=== PATIENT | male | born 2000 | race Caucasian/White ===

== ENCOUNTER 2020-06-29 15:43 | Outpatient (REF) | payer OTHER, SELFPAY ==
--- NOTE | ~2020-06-29 | XR_ITS ---
EXAMINATION: XR TEMPOROMANDIBULAR JOINT, BILATERAL CLINICAL INFORMATION: M26.609 - Unspecified temporomandibular joint disorder, unspecified side. COMPARISON: None TECHNIQUE: Bilateral open and closed oblique lateral views of the TMJ are obtained along with an AP view. There are a total of 5 views of the bilateral exam. FINDINGS: The condylar heads and necks appear normal. The mandibular fossas appear normal. There is no joint narrowing or erosive change. No fracture. There appears to be normal translocation with open-mouth position. XR/XR TMJ BI IMPRESSION: 1. Unremarkable bilateral TMJ radiographs. 2. If clinically indicated, further imaging of the temporomandibular joint and meniscus may be obtained with MRI.
== END 2020-06-29 15:44 | disposition home or self-care (01) ==
LOC: HO.HMGCX 15:43
PROVIDERS: PCP Nurse Practitioner Family; Visit Provider Nurse Practitioner Family
DX: M26.609 Unspecified temporomandibular joint disorder, unspecified side (principal)
CPT/HCPCS: 70330

== ENCOUNTER 2020-08-05 09:37 | Outpatient (RCR) | payer OTHER, SELFPAY ==
--- NOTE | 2020-08-09 12:07 | MHC.PT.EP ---
[facility] [place] Office [place] Office [place] Office [address] [phone] F: [phone] F: [phone] F: [phone] F: [phone] Physical Therapy Plan of Care Date of Evaluation: 08/05/20 Date of Surgery: Diagnosis: TMD Assessment: Pt is a 20 y/o male referred to PT for TMD who presents with signs and symptoms consistent with diagnosis resulting in decreased tolerance for talking for duration, chewing and eating preferred foods, modifying his diet to accommodate, and full range opening activities such as yawning secondary to decreased TMJ ROM, decreased cervical posture, increased cervical tissue tension, presence of L side click with opening and crepitis upon closing, and mandibular instability. Pt is deemed an appropriate candidate to receive skilled PT services to address his physical impairments in order to improve his functional ability and return to PLOF with is unrestricted of mandibular/ TMJ activity. NOTE: call placed to Pt's dental office for appropriateness of police guard who responded and will f/u with Pt. Frequency and Duration: The patient will be seen 1 x / wk x 6 wks. Short Term Goals: In 1 week: initiate [place] x 6 series of exercises with evidence of home compliance. In 3 weeks: baseline pain with activity improved to < 3/10; initial 5/10. In 3 weeks: Pt will have f/u with DMD re. police guard if appropriate. Alf Goals: In 6 weeks: I with Home Program. In 6 weeks: Full painless mandibular depression without clicking. In 6 weeks: Pt will report able to consume preferred food nutrition items w/o difficulty; initial: i can't eat much of anything I want, because it often causes pain, tenderness or restricted jaw opening (TMD index). Treatment Plan: Modalities to reduce pain, spasms and effusion. Manual therapy to restore motion and function. Therapeutic exercise to improve strength and flexibility. Neuromuscular re-education for posture and balance. Therapeutic activities to return to functional activities of daily living. Electronically signed by: Hitesh Schmidt PT. Please sign and return to therapist. Thank you for your referral.
== END 2021-01-27 08:55 | disposition home or self-care (01) ==
LOC: HO.PTCHIC 09:37
PROVIDERS: PCP Nurse Practitioner Family; Visit Provider Nurse Practitioner Family
DX: M26.602 Left temporomandibular joint disorder, unspecified (principal)
CPT/HCPCS: 97110; 97161

== ENCOUNTER 2020-08-10 17:05 | Inpatient (IN) | payer OTHER, SELFPAY ==
--- NOTE | ~2020-08-10 | CT_ITS ---
EXAMINATION: CT ABDOMEN AND PELVIS WITH CONTRAST CLINICAL INFORMATION: Diffuse abdominal pain. Nausea and vomiting. Diarrhea. COMPARISON: CT scan abdomen pelvis 03/08/2019 TECHNIQUE: Multidetector volumetric images were obtained from the superior aspect of the liver through the pubic symphysis following administration 85 mL of Omnipaque 350 intravenous contrast. Sagittal and coronal reformatted images were obtained on the technologist's workstation. Oral contrast: No This CT examination was performed using dose optimization techniques as appropriate, variously including the following: *Automated exposure control *Adjustment of mA and/or kV according to patient size (this includes techniques or standardized protocols for targeted exams where dose is matched to indication/reason for exam; i.e. extremities or head) *Use of iterative reconstruction technique DLP: 690 mGy-cm FINDINGS: LUNG BASES: The visualized lung bases are unremarkable. LIVER, GALLBLADDER, AND BILIARY TREE: The liver is normal in size, shape, and attenuation. No focal hepatic lesion or biliary ductal dilatation is present. The gallbladder is unremarkable with no evidence of radiopaque gallstones, gallbladder wall thickening, or obvious pericholecystic inflammatory changes. PANCREAS: Unremarkable. SPLEEN: Unremarkable. ADRENAL GLANDS: Unremarkable. KIDNEYS AND URETERS: The kidneys are normal in size, shape, and attenuation. No hydronephrosis, hydroureter, or calculi seen. No perinephric stranding. BLADDER: Unremarkable. GASTROINTESTINAL TRACT: Small volume of high density are layering dependently in the cecum. There is a long segment of mild diffuse submucosal thickening of the left colon from the proximal descending colon through the sigmoid colon. There is no significant edema in the pericolonic fat however. Findings consistent with a mild colitis. No bowel obstruction. Small volume of scattered stool in the colon. The appendix is not visualized. The small bowel loops are normal. The stomach is normal. ABDOMINAL WALL: No significant hernia is appreciated. LYMPH NODES: Normal. VASCULAR: Unremarkable. PELVIC VISCERA: Unremarkable. OSSEOUS STRUCTURES: Unremarkable. CT/CT abdomen pelvis w con IMPRESSION: There is a long segment of mild diffuse submucosal thickening, edema, of the descending colon and sigmoid consistent with colitis. Findings consistent with patient history of C. difficile.
[2020-08-10 18:34] LABS: MANUAL DIFF FLAG NO
[2020-08-10 18:36] LABS: Basophils Percent Auto 0.4 % (0-2); Eosinophils Percent Auto 0.6 % (0-4); Hematocrit 41.9 % (42-52); Imm Gran Abs Auto 0.01 X10*3/uL (0.00-0.03); Imm Gran Pct Auto 0.2 % (0.0-0.4); Lymphocytes Absolute Auto 1.1 X10*3/uL (1.2-4.9); Lymphocytes Percent Auto 23.8 % (20-40); Mean Corpuscular HGB Conc 35.8 g/dl (31.0-36.0); Mean Corpuscular Hemoglobin 31.6 pg (27.0-33.0); Mean Corpuscular Volume 88.4 fL (80-98); Mean Platelet Volume 9.8 fL (9.4-12.4); Monocytes Absolute Auto 0.7 X10*3/uL (0.1-1.2); Monocytes Percent Auto 15.4 % (2-11); Neutrophils Absolute Auto 2.8 X10*3/uL (2.0-8.3); Neutrophils Percent Auto 59.6 % (45-73); Platelet Count 248 X10*3/uL (160-400); Red Blood Count 4.74 X10*6/uL (4.60-5.80); Red Cell Distribution Width 11.6 % (11.0-16.0); White Blood Count 4.6 X10*3/uL (4.8-10.8)
[2020-08-10 18:43] LABS: INTERNATIONAL NORM RATIO 1.2 (0.9-1.1); Prothrombin Time 14.3 SEC (10.8-13.0)
[2020-08-10 18:50] LABS: COVID-19 Test Negative (Negative); IDNOW Serial# 9DD0AD1C
[2020-08-10 19:01] LABS: Lipase 10 U/L (8-78)
[2020-08-10 19:02] LABS: Alanine Aminotransferase 13 U/L (0-40); Albumin Level 4.4 g/dL (3.5-5.0); Alkaline Phosphatase 93 U/L (39-117); Anion Gap 17 (12-20); Aspartate Amino Transferase 15 U/L (5-37); Bilirubin Direct 0.5 mg/dL (0.0-0.5); Bilirubin Total 1.2 mg/dL (0.0-1.0); Blood Urea Nitrogen 10 mg/dL (9-16); Calcium 9.3 mg/dL (8.4-10.2); Carbon Dioxide 25 mmol/L (22-29); Chloride 99 mmol/L (96-108); Estimated Glomerular Filt Rate > 60; Glucose Random 93 mg/dL (60-115); Potassium 3.8 mmol/L (3.3-5.1); Sodium 137 mmol/L (135-145); Total Protein 7.1 g/dL (6.5-8.0)
[2020-08-10 20:37] VITALS: BP 130/68; PULSE 80; RESP 18; TEMP 37.2; O2SAT 98; BMI 28.0
[2020-08-10 20:54] LABS: Glucose Urine UA NEG (NEG); Leukocyte Esterase Urine NEG (NEG); Nitrite Urine NEG (NEG); PH 5.5 (5.0-8.0); Specific Gravity - Urine >= 1.030 (1.005-1.025); Urine Blood NEG (NEG); Urine Ketones 15 MG/DL (NEG); Urine Protein TRACE MG/DL (NEG-TRACE)
[2020-08-10 20:59] LABS: Appearance Urine CLEAR; Color Urine DARK YELLOW
[2020-08-10 21:48] VITALS: RESP 18
[2020-08-10] MEDS: Morphine Sulfate 4 MG/ML CARTRIDGE IVPUSH (21:48)
[2020-08-10] MEDS: Metoclopramide HCl 10 MG/2 ML VIAL IVPUSH (21:48)
[2020-08-10 22:04] VITALS: BP 119/71; PULSE 87; PULSE 88; RESP 17; RESP 18; TEMP 37.1; O2SAT 94; O2SAT 97
--- NOTE | 2020-08-10 22:04 | ED.ABDPAIN ---
HPI - Abdominal Pain General Chief Complaint: Abdominal Pain <FLIP Jacobson Last Filed: 08/10/20 22:52> Stated Complaint: Abdominal pain <FLIP Jacobson Last Filed: 08/10/20 22:52> Time Seen by Provider: 08/10/20 17:19 <FLIP Jacobson Last Filed: 08/10/20 22:52> Source: patient <FLIP Jacobson Last Filed: 08/10/20 22:52> Mode of arrival: ambulatory <FLIP Jacobson Last Filed: 08/10/20 22:52> Limitations: no limitations <FLIP Jacobson Last Filed: 08/10/20 22:52> History of Present Illness HPI narrative: A 20-year-old male with a past medical history of hepatitis, anxiety and depression presenting to the ED with complaints of nausea/vomiting with bilious/green watery diarrhea with diffuse abdominal pain worse in the right lower quadrant since Saturday worse today. Reports that he has been going to the bathroom to move his bowels multiple times an hour in small amounts. Reports that this started after eating overall steak although he normally eats a raw steak and he was with other people who ate the same raw steak and they do not have the same symptoms. Reports that he works at [employer]. Denies any recent travel or sick contacts or any other bad food exposure that he is aware of. Denies general weakness, Fevers, chest pain, shortness of breath, back pain, dysuria, hematuria or abnormal penile discharge. <FLIP Jacobson Last Filed: 08/10/20 22:52> MD elicited complaint: abdominal pain and other (Nausea/vomiting and green diarrhea) <FLIP Jacobson Last Filed: 08/10/20 22:52> Pertinent past history: none <FLIP Jacobson Last Filed: 08/10/20 22:52> Onset (ago): day(s) (Four days worse today) <FLIP Jacobson Last Filed: 08/10/20 22:52> Pain Consistency: constant <FLIP Jacobson Last Filed: 08/10/20 22:52> Location: diffuse and RLQ <FLIP Jacobson Last Filed: 08/10/20 22:52> Severity: severe <FLIP Jacobson Last Filed: 08/10/20 22:52> Quality: cramping and aching <FLIP Jacobson Last Filed: 08/10/20 22:52> Radiation: none <FLIP Jacobson Last Filed: 08/10/20 22:52> Migration to: no migration <FLIP Jacobson Last Filed: 08/10/20 22:52> Exacerbating factors: nothing <FLIP Jacobson Last Filed: 08/10/20 22:52> Relieving factors: nothing <FLIP Jacobson Last Filed: 08/10/20 22:52> Context: possible food poisoning <FLIP Jacobson Last Filed: 08/10/20 22:52> Associated symptoms: nausea, vomiting and diarrhea <FLIP Jacobson Last Filed: 08/10/20 22:52> Related Data Home Medications: Previous Rx's Medication Instructions Recorded trazodone 100 mg tablet 100 mg PO BEDTIME 30 Days #30 tab 06/23/20 sertraline 100 mg tablet 100 mg PO DAILY #90 tab 06/27/20 levofloxacin 750 mg PO DAILY 7 Days #12 tab 08/13/20 oxycodone 5 mg PO Q6H PRN #10 tab 08/13/20 <FLIP Jacobson Last Filed: 08/10/20 22:52> Allergies/Adverse Reactions: Allergies Allergy/AdvReac Type Severity Reaction Status Date / Time amoxicillin [AMOXICILLIN] Allergy Unknown hives Verified 04/20/20 08:35 <FLIP Jacobson Last Filed: 08/10/20 22:52> Review of Systems Review of Systems Constitutional : No Fever, No Chills, No Night Sweats, No Fatigue, No Malaise Cardiovascular : No Chest Pain, No SOB Respiratory : No Cough, No Sputum, No Wheezing, No Dyspnea Gastrointestinal : + Nausea, + Vomiting, + Diarrhea, + abdominal Pain, No Hematochezia, No Melena Genitourinary : No irregular bleeding, No Dysuria, No Urinary Frequency, No Hematuria,No Urinary Incontinence, No Urgency, No Flank Pain Musculoskeletal : No joint pain, No Myalgias, No Joint Swelling Skin : No Skin Lesions, No rash Neuro : No Weakness, No Numbness, No Paresthesias, No Loss of Consciousness, No Dizziness, No Headache Heme/Lymph: No Lymphadenopathy Endocrine : No Temperature Intolerance <FLIP Jacobson - Last Filed: 08/10/20 22:52> Yes all other systems are reviewed and are negative <FLIP Jacobson - Last Filed: 08/10/20 22:52> Physical Exam Vital Signs: Vital Signs: Last Vital Signs Temp 97.7 F 08/13/20 15:29 Pulse 89 08/13/20 15:29 Resp 14 08/13/20 15:29 BP 118/59 L 08/13/20 15:29 Pulse Ox 96 08/13/20 15:29 Body Mass Index 28.0 vital signs have been reviewed as normal and appeared to be correct. Blood pressure normal. Heart rate normal. Respiration rate normal. Temperature normal. Oxygen saturation normal. <FLIP Jacobson - Last Filed: 08/10/20 22:52> Vital Signs: Last Vital Signs Temp 97.7 F 08/13/20 15:29 Pulse 89 08/13/20 15:29 Resp 14 08/13/20 15:29 BP 118/59 L 08/13/20 15:29 Pulse Ox 96 08/13/20 15:29 Body Mass Index 28.0 <Dav Jackman MD - Last Filed: 08/30/20 06:18> Appearance: Alert. Oriented X3. No acute distress. Head: Normal external exam. Normocephalic. Eyes: PERRLA. EOMI. Conjunctiva and sclera normal. Eyelids normal. ENT: Pharynx normal. Uvula midline. Moist mucous membranes. Neck: Normal inspection. Neck supple. FROM. No adenopathy. No meningeal signs. CVS: Normal heart rate and rhythm. Heart sound normal. No murmurs noted. Pulses normal throughout. Respiratory: No respiratory distress. Painless inspiration. Breath sounds normal. No wheezes/rales/rhonchi noted. Chest nontender. No accessory muscle usage noted or decreased air movement noted. Abdomen: Soft and with TTP diffusely worse in the right lower quadrant with guarding. Nondistended. No rigidity. Bowel sounds normal in all 4 quadrants. No distention noted. No organomegaly noted. No visible injury noted. No rebound tenderness. Negative Rovsing sign. Negative obturator's sign. Negative psoas sign. Negative Neil sign. Back: No CVA tenderness. Full range of motion noted. Skin: Skin warm and dry. Normal skin color. Normal skin turgor. No rashes/lesions/lacerations noted. Extremities: Extremities exhibit normal range of motion. Extremities nontender. Neuro: Oriented X 3. No motor deficit. No sensory deficit. Reflexes normal. <FLIP Jacobson - Last Filed: 08/10/20 22:52> Course Course Course Narrative: A 20-year-old male with a past medical history of hepatitis, anxiety and depression presenting to the ED with complaints of nausea/vomiting with bilious/green watery diarrhea with diffuse abdominal pain worse in the right lower quadrant since Saturday worse today. - labs obtained and patient with white blood cell count of 4000. Bilirubin 1.2 otherwise all other labs are within normal limits. UA within normal limits no evidence of UTI. Negative COVID. CT scan of abdomen and pelvis revealed long segment of mild diffuse submucosal thickening, edema, of the descending colon and sigmoid consistent with colitis. Findings consistent with patient history of C. difficile. - although when I look in the patient's old chart there is no history of C diff he denies a history of C diff therefore not sure what they meant and CT scan may be because I wrote green colored stools. - at this time patient has negative for C diff on stool culture although will treat for colitis and plan to admit for colitis with associated nausea/vomiting and diffuse abdominal pain. Patient understands agrees with this plan. <FLIP Jacobson - Last Filed: 08/10/20 22:52> I have reviewed the chart <Dav Jackman MD - Last Filed: 08/30/20 06:18> MDM - Abdominal Pain Medical Records Attestation: I reviewed the patient's medical records. <FLIP Jacobson - Last Filed: 08/10/20 22:52> Lab Data Attestation: I reviewed the patient's lab results. <FLIP Jacobson - Last Filed: 08/10/20 22:52> Result diagrams: : 08/11/20 07:02 08/11/20 07:02 <FLIP Jacobson - Last Filed: 08/10/20 22:52> Labs: Lab Results 08/10/20 08/10/20 08/10/20 Range/Units 18:28 18:28 18:29 WBC 4.6 L (4.8-10.8) X10*3/uL RBC 4.74 (4.60-5.80) X10*6/uL Hgb 15.0 (14.0-18.0) g/dl Hct 41.9 L (42-52) % MCV 88.4 (80-98) fL MCH 31.6 (27.0-33.0) pg MCHC 35.8 (31.0-36.0) g/dl RDW 11.6 (11.0-16.0) % Plt Count 248 (160-400) X10*3/uL MPV 9.8 (9.4-12.4) fL Immature Gran % (Auto) 0.2 (0.0-0.4) % Neut % (Auto) 59.6 (45-73) % Lymph % (Auto) 23.8 (20-40) % Ford % (Auto) 15.4 H (2-11) % Eos % (Auto) 0.6 (0-4) % Baso % (Auto) 0.4 (0-2) % Lymph # (Auto) 1.1 L (1.2-4.9) X10*3/uL Ford # (Auto) 0.7 (0.1-1.2) X10*3/uL Eos # (Auto) 0.0 (0.0-0.4) X10*3/uL Baso # (Auto) 0.0 (0.0-0.2) X10*3/uL Abs Immat Gran (auto) 0.01 (0.00-0.03) X10*3/uL Absolute Neuts (auto) 2.8 (2.0-8.3) X10*3/uL Absolute Nucleated RBC 0.000 (0.0-0.012) X10*3/uL Nucleated RBC % (auto) 0.0 (0.0-0.2) /100WBC PT 14.3 H (10.8-13.0) SEC INR 1.2 H (0.9-1.1) Sodium (135-145) mmol/L Potassium (3.3-5.1) mmol/L Chloride (96-108) mmol/L Carbon Dioxide (22-29) mmol/L Anion Gap (12-20) BUN (9-16) mg/dL Creatinine (0.5-1.4) mg/dL Estim Creat Clear Calc Estimated GFR Random Glucose (60-115) mg/dL Calcium (8.4-10.2) mg/dL Magnesium (1.6-2.6) mg/dL Total Bilirubin (0.0-1.0) mg/dL Direct Bilirubin (0.0-0.5) mg/dL AST (5-37) U/L ALT (0-40) U/L Alkaline Phosphatase (39-117) U/L Total Protein (6.5-8.0) g/dL Albumin (3.5-5.0) g/dL Lipase 10 (8-78) U/L Urine Color Urine Appearance Urine pH (5.0-8.0) Ur Specific [place] (1.005-1.025) Urine Protein (NEG-TRACE) MG/DL Urine Glucose (UA) (NEG) MG/DL Urine Ketones (NEG) MG/DL Urine Blood (NEG) Urine Nitrite (NEG) Ur Leukocyte Esterase (NEG) Stool Leukocytes, Qual (NEGATIVE) C. difficile Toxin A&B (Negative) C. difficile Antigen (Negative) C. difficile Interpret COVID-19 (VISHNU) (Negative) COVID-19 Clin Com 08/10/20 08/10/20 08/10/20 Range/Units 18:29 18:29 20:44 WBC (4.8-10.8) X10*3/uL RBC (4.60-5.80) X10*6/uL Hgb (14.0-18.0) g/dl Hct (42-52) % MCV (80-98) fL MCH (27.0-33.0) pg MCHC (31.0-36.0) g/dl RDW (11.0-16.0) % Plt Count (160-400) X10*3/uL MPV (9.4-12.4) fL Immature Gran % (Auto) (0.0-0.4) % Neut % (Auto) (45-73) % Lymph % (Auto) (20-40) % Ford % (Auto) (2-11) % Eos % (Auto) (0-4) % Baso % (Auto) (0-2) % Lymph # (Auto) (1.2-4.9) X10*3/uL [place] # (Auto) (0.1-1.2) X10*3/uL Eos # (Auto) (0.0-0.4) X10*3/uL Baso # (Auto) (0.0-0.2) X10*3/uL Abs Immat Gran (auto) (0.00-0.03) X10*3/uL Absolute Neuts (auto) (2.0-8.3) X10*3/uL Absolute Nucleated RBC (0.0-0.012) X10*3/uL Nucleated RBC % (auto) (0.0-0.2) /100WBC PT (10.8-13.0) SEC INR (0.9-1.1) Sodium 137 (135-145) mmol/L Potassium 3.8 (3.3-5.1) mmol/L Chloride 99 (96-108) mmol/L Carbon Dioxide 25 (22-29) mmol/L Anion Gap 17 (12-20) BUN 10 (9-16) mg/dL Creatinine 1.04 (0.5-1.4) mg/dL Estim Creat Clear Calc TNP Estimated GFR > 60 Random Glucose 93 (60-115) mg/dL Calcium 9.3 (8.4-10.2) mg/dL Magnesium 2.0 (1.6-2.6) mg/dL Total Bilirubin 1.2 H (0.0-1.0) mg/dL Direct Bilirubin 0.5 (0.0-0.5) mg/dL AST 15 (5-37) U/L ALT 13 (0-40) U/L Alkaline Phosphatase 93 (39-117) U/L Total Protein 7.1 (6.5-8.0) g/dL Albumin 4.4 (3.5-5.0) g/dL Lipase (8-78) U/L Urine Color DARK YELLOW Urine Appearance CLEAR Urine pH 5.5 (5.0-8.0) Ur Specific [place] >= 1.030 H (1.005-1.025) Urine Protein TRACE (NEG-TRACE) MG/DL Urine Glucose (UA) NEG (NEG) MG/DL Urine Ketones 15 (NEG) MG/DL Urine Blood NEG (NEG) Urine Nitrite NEG (NEG) Ur Leukocyte Esterase NEG (NEG) Stool Leukocytes, Qual (NEGATIVE) C. difficile Toxin A&B (Negative) C. difficile Antigen (Negative) C. difficile Interpret COVID-19 (VISHNU) Negative (Negative) COVID-19 Clin Com See Note 08/10/20 08/10/20 Range/Units 21:42 22:13 WBC (4.8-10.8) X10*3/uL RBC (4.60-5.80) X10*6/uL Hgb (14.0-18.0) g/dl Hct (42-52) % MCV (80-98) fL MCH (27.0-33.0) pg MCHC (31.0-36.0) g/dl RDW (11.0-16.0) % Plt Count (160-400) X10*3/uL MPV (9.4-12.4) fL Immature Gran % (Auto) (0.0-0.4) % Neut % (Auto) (45-73) % Lymph % (Auto) (20-40) % Ford % (Auto) (2-11) % Eos % (Auto) (0-4) % Baso % (Auto) (0-2) % Lymph # (Auto) (1.2-4.9) X10*3/uL [place] # (Auto) (0.1-1.2) X10*3/uL Eos # (Auto) (0.0-0.4) X10*3/uL Baso # (Auto) (0.0-0.2) X10*3/uL Abs Immat Gran (auto) (0.00-0.03) X10*3/uL Absolute Neuts (auto) (2.0-8.3) X10*3/uL Absolute Nucleated RBC (0.0-0.012) X10*3/uL Nucleated RBC % (auto) (0.0-0.2) /100WBC PT (10.8-13.0) SEC INR (0.9-1.1) Sodium (135-145) mmol/L Potassium (3.3-5.1) mmol/L Chloride (96-108) mmol/L Carbon Dioxide (22-29) mmol/L Anion Gap (12-20) BUN (9-16) mg/dL Creatinine (0.5-1.4) mg/dL Estim Creat Clear Calc Estimated GFR Random Glucose (60-115) mg/dL Calcium (8.4-10.2) mg/dL Magnesium (1.6-2.6) mg/dL Total Bilirubin (0.0-1.0) mg/dL Direct Bilirubin (0.0-0.5) mg/dL AST (5-37) U/L ALT (0-40) U/L Alkaline Phosphatase (39-117) U/L Total Protein (6.5-8.0) g/dL Albumin (3.5-5.0) g/dL Lipase (8-78) U/L Urine Color Urine Appearance Urine pH (5.0-8.0) Ur Specific [place] (1.005-1.025) Urine Protein (NEG-TRACE) MG/DL Urine Glucose (UA) (NEG) MG/DL Urine Ketones (NEG) MG/DL Urine Blood (NEG) Urine Nitrite (NEG) Ur Leukocyte Esterase (NEG) Stool Leukocytes, Qual MANY: >10/OIF (NEGATIVE) C. difficile Toxin A&B Negative (Negative) C. difficile Antigen Negative (Negative) C. difficile Interpret SEE NOTE COVID-19 (VISHNU) (Negative) COVID-19 Clin Com <FLIP Jacobson - Last Filed: 08/10/20 22:52> Lab Results 08/10/20 08/10/20 08/10/20 Range/Units 18:28 18:28 18:29 WBC 4.6 L (4.8-10.8) X10*3/uL RBC 4.74 (4.60-5.80) X10*6/uL Hgb 15.0 (14.0-18.0) g/dl Hct 41.9 L (42-52) % MCV 88.4 (80-98) fL MCH 31.6 (27.0-33.0) pg MCHC 35.8 (31.0-36.0) g/dl RDW 11.6 (11.0-16.0) % Plt Count 248 (160-400) X10*3/uL MPV 9.8 (9.4-12.4) fL Immature Gran % (Auto) 0.2 (0.0-0.4) % Neut % (Auto) 59.6 (45-73) % Lymph % (Auto) 23.8 (20-40) % Ford % (Auto) 15.4 H (2-11) % Eos % (Auto) 0.6 (0-4) % Baso % (Auto) 0.4 (0-2) % Lymph # (Auto) 1.1 L (1.2-4.9) X10*3/uL [place] # (Auto) 0.7 (0.1-1.2) X10*3/uL Eos # (Auto) 0.0 (0.0-0.4) X10*3/uL Baso # (Auto) 0.0 (0.0-0.2) X10*3/uL Abs Immat Gran (auto) 0.01 (0.00-0.03) X10*3/uL Absolute Neuts (auto) 2.8 (2.0-8.3) X10*3/uL Absolute Nucleated RBC 0.000 (0.0-0.012) X10*3/uL Nucleated RBC % (auto) 0.0 (0.0-0.2) /100WBC PT 14.3 H (10.8-13.0) SEC INR 1.2 H (0.9-1.1) Sodium (135-145) mmol/L Potassium (3.3-5.1) mmol/L Chloride (96-108) mmol/L Carbon Dioxide (22-29) mmol/L Anion Gap (12-20) BUN (9-16) mg/dL Creatinine (0.5-1.4) mg/dL Estim Creat Clear Calc Estimated GFR Random Glucose (60-115) mg/dL Calcium (8.4-10.2) mg/dL Magnesium (1.6-2.6) mg/dL Total Bilirubin (0.0-1.0) mg/dL Direct Bilirubin (0.0-0.5) mg/dL AST (5-37) U/L ALT (0-40) U/L Alkaline Phosphatase (39-117) U/L Total Protein (6.5-8.0) g/dL Albumin (3.5-5.0) g/dL Lipase 10 (8-78) U/L Urine Color Urine Appearance Urine pH (5.0-8.0) Ur Specific [place] (1.005-1.025) Urine Protein (NEG-TRACE) MG/DL Urine Glucose (UA) (NEG) MG/DL Urine Ketones (NEG) MG/DL Urine Blood (NEG) Urine Nitrite (NEG) Ur Leukocyte Esterase (NEG) Stool Leukocytes, Qual (NEGATIVE) C. difficile Toxin A&B (Negative) C. difficile Antigen (Negative) C. difficile Interpret COVID-19 (VISHNU) (Negative) COVID-19 Clin Com 08/10/20 08/10/20 08/10/20 Range/Units 18:29 18:29 20:44 WBC (4.8-10.8) X10*3/uL RBC (4.60-5.80) X10*6/uL Hgb (14.0-18.0) g/dl Hct (42-52) % MCV (80-98) fL MCH (27.0-33.0) pg MCHC (31.0-36.0) g/dl RDW (11.0-16.0) % Plt Count (160-400) X10*3/uL MPV (9.4-12.4) fL Immature Gran % (Auto) (0.0-0.4) % Neut % (Auto) (45-73) % Lymph % (Auto) (20-40) % [place] % (Auto) (2-11) % Eos % (Auto) (0-4) % Baso % (Auto) (0-2) % Lymph # (Auto) (1.2-4.9) X10*3/uL [place] # (Auto) (0.1-1.2) X10*3/uL Eos # (Auto) (0.0-0.4) X10*3/uL Baso # (Auto) (0.0-0.2) X10*3/uL Abs Immat Gran (auto) (0.00-0.03) X10*3/uL Absolute Neuts (auto) (2.0-8.3) X10*3/uL Absolute Nucleated RBC (0.0-0.012) X10*3/uL Nucleated RBC % (auto) (0.0-0.2) /100WBC PT (10.8-13.0) SEC INR (0.9-1.1) Sodium 137 (135-145) mmol/L Potassium 3.8 (3.3-5.1) mmol/L Chloride 99 (96-108) mmol/L Carbon Dioxide 25 (22-29) mmol/L Anion Gap 17 (12-20) BUN 10 (9-16) mg/dL Creatinine 1.04 (0.5-1.4) mg/dL Estim Creat Clear Calc TNP Estimated GFR > 60 Random Glucose 93 (60-115) mg/dL Calcium 9.3 (8.4-10.2) mg/dL Magnesium 2.0 (1.6-2.6) mg/dL Total Bilirubin 1.2 H (0.0-1.0) mg/dL Direct Bilirubin 0.5 (0.0-0.5) mg/dL AST 15 (5-37) U/L ALT 13 (0-40) U/L Alkaline Phosphatase 93 (39-117) U/L Total Protein 7.1 (6.5-8.0) g/dL Albumin 4.4 (3.5-5.0) g/dL Lipase (8-78) U/L Urine Color DARK YELLOW Urine Appearance CLEAR Urine pH 5.5 (5.0-8.0) Ur Specific [place] >= 1.030 H (1.005-1.025) Urine Protein TRACE (NEG-TRACE) MG/DL Urine Glucose (UA) NEG (NEG) MG/DL Urine Ketones 15 (NEG) MG/DL Urine Blood NEG (NEG) Urine Nitrite NEG (NEG) Ur Leukocyte Esterase NEG (NEG) Stool Leukocytes, Qual (NEGATIVE) C. difficile Toxin A&B (Negative) C. difficile Antigen (Negative) C. difficile Interpret COVID-19 (VISHNU) Negative (Negative) COVID-19 Clin Com See Note 08/10/20 08/10/20 Range/Units 21:42 22:13 WBC (4.8-10.8) X10*3/uL RBC (4.60-5.80) X10*6/uL Hgb (14.0-18.0) g/dl Hct (42-52) % MCV (80-98) fL MCH (27.0-33.0) pg MCHC (31.0-36.0) g/dl RDW (11.0-16.0) % Plt Count (160-400) X10*3/uL MPV (9.4-12.4) fL Immature Gran % (Auto) (0.0-0.4) % Neut % (Auto) (45-73) % Lymph % (Auto) (20-40) % [place] % (Auto) (2-11) % Eos % (Auto) (0-4) % Baso % (Auto) (0-2) % Lymph # (Auto) (1.2-4.9) X10*3/uL [place] # (Auto) (0.1-1.2) X10*3/uL Eos # (Auto) (0.0-0.4) X10*3/uL Baso # (Auto) (0.0-0.2) X10*3/uL Abs Immat Gran (auto) (0.00-0.03) X10*3/uL Absolute Neuts (auto) (2.0-8.3) X10*3/uL Absolute Nucleated RBC (0.0-0.012) X10*3/uL Nucleated RBC % (auto) (0.0-0.2) /100WBC PT (10.8-13.0) SEC INR (0.9-1.1) Sodium (135-145) mmol/L Potassium (3.3-5.1) mmol/L Chloride (96-108) mmol/L Carbon Dioxide (22-29) mmol/L Anion Gap (12-20) BUN (9-16) mg/dL Creatinine (0.5-1.4) mg/dL Estim Creat Clear Calc Estimated GFR Random Glucose (60-115) mg/dL Calcium (8.4-10.2) mg/dL Magnesium (1.6-2.6) mg/dL Total Bilirubin (0.0-1.0) mg/dL Direct Bilirubin (0.0-0.5) mg/dL AST (5-37) U/L ALT (0-40) U/L Alkaline Phosphatase (39-117) U/L Total Protein (6.5-8.0) g/dL Albumin (3.5-5.0) g/dL Lipase (8-78) U/L Urine Color Urine Appearance Urine pH (5.0-8.0) Ur Specific [place] (1.005-1.025) Urine Protein (NEG-TRACE) MG/DL Urine Glucose (UA) (NEG) MG/DL Urine Ketones (NEG) MG/DL Urine Blood (NEG) Urine Nitrite (NEG) Ur Leukocyte Esterase (NEG) Stool Leukocytes, Qual MANY: >10/OIF (NEGATIVE) C. difficile Toxin A&B Negative (Negative) C. difficile Antigen Negative (Negative) C. difficile Interpret SEE NOTE COVID-19 (VISHNU) (Negative) COVID-19 Clin Com <Dav Jackman MD - Last Filed: 08/30/20 06:18> Imaging Data CT scan of abdomen and pelvis with IV contrast: Attestation: I personally reviewed and interpreted this imaging study as follows: <FLIP Jacobson - Last Filed: 08/10/20 22:52> Radiologist's impression: FINDINGS: LUNG BASES: The visualized lung bases are unremarkable. LIVER, GALLBLADDER, AND BILIARY TREE: The liver is normal in size, shape, and attenuation. No focal hepatic lesion or biliary ductal dilatation is present. The gallbladder is unremarkable with no evidence of radiopaque gallstones, gallbladder wall thickening, or obvious pericholecystic inflammatory changes. PANCREAS: Unremarkable. SPLEEN: Unremarkable. ADRENAL GLANDS: Unremarkable. KIDNEYS AND URETERS: The kidneys are normal in size, shape, and attenuation. No hydronephrosis, hydroureter, or calculi seen. No perinephric stranding. BLADDER: Unremarkable. GASTROINTESTINAL TRACT: Small volume of high density are layering dependently in the cecum. There is a long segment of mild diffuse submucosal thickening of the left colon from the proximal descending colon through the sigmoid colon. There is no significant edema in the pericolonic fat however. Findings consistent with a mild colitis. No bowel obstruction. Small volume of scattered stool in the colon. The appendix is not visualized. The small bowel loops are normal. The stomach is normal. ABDOMINAL WALL: No significant hernia is appreciated. LYMPH NODES: Normal. VASCULAR: Unremarkable. PELVIC VISCERA: Unremarkable. OSSEOUS STRUCTURES: Unremarkable. CT/CT abdomen pelvis w con IMPRESSION: There is a long segment of mild diffuse submucosal thickening, edema, of the descending colon and sigmoid consistent with colitis. Findings consistent with patient history of C. difficile. <FLIP Jacobson - Last Filed: 08/10/20 22:52> Critical Care Time Critical Care Time Critical Care Time: Yes <FLIP Jacobson - Last Filed: 08/10/20 22:52> Total Critical Care Time: 60 <FLIP Jacobson - Last Filed: 08/10/20 22:52> Attestation: I personally attest to this time spent taking care of the patient <FLIP Jacobson - Last Filed: 08/10/20 22:52> Discharge Plan Discharge Clinical Impression: Colitis, Diarrhea, Abdominal pain, Nausea & vomiting <FLIP Jacobson - Last Filed: 08/10/20 22:52> Patient Disposition: Admitted As Inpatient <FLIP Jacobson - Last Filed: 08/10/20 22:52> Interventions: Admission Worksheet (ED) Last Done: 08/11/20 08:35 <FLIP Jacobson - Last Filed: 08/10/20 22:52> Discharge Date/Time: 08/11/20 08:35 <FLIP Jacobson - Last Filed: 08/10/20 22:52> [facility] Past Medical History Attestation statement: The following information was validated with the patient. <FLIP Jacobson - Last Filed: 08/10/20 22:52> Medical History: Medical History Anxiety <FLIP Jacobson - Last Filed: 08/10/20 22:52> Surgical History: Surgical History No pertinent past surgical history <FLIP Jacobson - Last Filed: 08/10/20 22:52> Family History Family History: Family History Father No problems noted. Mother No problems noted. Sister No problems noted. <FLIP Jacobson - Last Filed: 08/10/20 22:52> Social History Social History: Social History Household Members: Family Housing: House Smoking Status: Light tobacco smoker service: No Current occupational status: employed <FLIP Jacobson - Last Filed: 08/10/20 22:52>
--- NOTE | 2020-08-10 22:18 | PC.NURSE ---
waiting for both blood cultures to be drawn and then antibx will be started.
[2020-08-10 22:33] LABS: CDIFF Ag Negative (Negative); CDIFF Internal ctrl Dots and bkg OK (V); CDiff Toxin Negative (Negative)
[2020-08-10] MEDS: metroNIDAZOLE/NS 500 MG/100 ML PIGGYBACK 100 MG IV (22:50)
[2020-08-10 23:06] LABS: Leukocytes Stool Qualitative MANY: >10/OIF (NEGATIVE)
--- NOTE | 2020-08-10 23:38 | PM.IMHP ---
History of Present Illness Date of Service: 08/10/20 Chief Complaint: diarrhea and abdominal pain This is a 20-year-old male with no significant past medical history who presents to the hospital with 4 days of abdominal pain as well as bloody diarrhea. Patient reports that he initially started with nausea and vomiting that progressed to diarrhea about 20-30 times daily, the diarrhea has been bloody but small amount, the blood resolved today prior to coming to the hospital, the abdominal pain is diffuse but mostly worst at lower abdomen, 10/10, associated with nausea, the vomiting has resolved at this time, constant, patient has also decreased his oral intake due to the nausea and abdominal pain. No previous similar episode. Denies any family history of IBD. On arrival to the ED hemodynamically stable with no significant abnormal vitals Lab significant for a WBC count of 4.6, PT of 14.3, INR of 1.2, UA negative, C diff negative, come below back to Janie night pending, abdominal pelvic CT showed a long segment of mild diffuse submucosal thickening and edema of the descending colon and sigmoid consistent with colitis. Patient will be admitted for further management Review of Systems Review of Systems: Yes all other systems are reviewed and are negative [facility] Medical History Anxiety Family History Father No problems noted. Mother No problems noted. Sister No problems noted. Surgical History No pertinent past surgical history Social History Smoking Status: Light tobacco smoker Use of substances other than those prescribed or required for medical reasons: No Advance Directives: No Advance Directives Information Provided: Yes Meds Allergies Allergy/AdvReac Type Severity Reaction Status Date / Time amoxicillin [AMOXICILLIN] Allergy Unknown hives Verified 04/20/20 08:35 Physical Exam Vital Signs and Narrative: Vital Signs: Last Vital Signs Temp 98.8 F 08/10/20 22:04 Pulse 87 08/10/20 22:04 Resp 18 08/10/20 22:04 BP 119/71 08/10/20 22:04 Pulse Ox 97 08/10/20 22:04 Body Mass Index 28.0 Const: General: cooperative and no acute distress Orientation/consciousness: patient oriented x3 Eyes: General: appearance normal, both eyes and all related structures Resp: Effort & Inspection: normal respiratory effort Cardio: Rate: regular rate Rhythm: regular rhythm GI: Other: Diffuse tenderness on palpation of abdomen, no guarding, no rebound Palpation (GI): Soft to palpation Skin: General skin exam: no rashes or lesions noted Neuro: General: patient oriented x3 Cognition (Neuro): normal cognition Extrem: General: Yes normal to inspection and Yes no pedal edema Results Labs CBC and Chem 7: 08/10/20 18:29 08/10/20 18:29 Labs: Laboratory Results - last 24 hr 08/10/20 08/10/20 08/10/20 18:28 18:28 18:29 MCV 88.4 MCH 31.6 MCHC 35.8 RDW 11.6 Plt Count 248 MPV 9.8 Immature Gran % (Auto) 0.2 Neut % (Auto) 59.6 Lymph % (Auto) 23.8 [place] % (Auto) 15.4 H Eos % (Auto) 0.6 Baso % (Auto) 0.4 Lymph # (Auto) 1.1 L [place] # (Auto) 0.7 Eos # (Auto) 0.0 Baso # (Auto) 0.0 Abs Immat Gran (auto) 0.01 Absolute Neuts (auto) 2.8 Absolute Nucleated RBC 0.000 Nucleated RBC % (auto) 0.0 PT 14.3 H INR 1.2 H Anion Gap Estim Creat Clear Calc Estimated GFR Random Glucose Calcium Magnesium Total Bilirubin Direct Bilirubin AST ALT Alkaline Phosphatase Total Protein Albumin Lipase 10 Urine Color Urine Appearance Urine pH Ur Specific Hope Urine Protein Urine Glucose (UA) Urine Ketones Urine Blood Urine Nitrite Ur Leukocyte Esterase Stool Leukocytes, Qual C. difficile Toxin A&B C. difficile Antigen C. difficile Interpret COVID-19 ([facility]) COVID-19 Clin Com 08/10/20 08/10/20 08/10/20 18:29 18:29 20:44 MCV MCH MCHC RDW Plt Count MPV Immature Gran % (Auto) Neut % (Auto) Lymph % (Auto) [place] % (Auto) Eos % (Auto) Baso % (Auto) Lymph # (Auto) [place] # (Auto) Eos # (Auto) Baso # (Auto) Abs Immat Gran (auto) Absolute Neuts (auto) Absolute Nucleated RBC Nucleated RBC % (auto) PT INR Anion Gap 17 Estim Creat Clear Calc TNP Estimated GFR > 60 Random Glucose 93 Calcium 9.3 Magnesium 2.0 Total Bilirubin 1.2 H Direct Bilirubin 0.5 AST 15 ALT 13 Alkaline Phosphatase 93 Total Protein 7.1 Albumin 4.4 Lipase Urine Color DARK YELLOW Urine Appearance CLEAR Urine pH 5.5 Ur Specific Hope >= 1.030 H Urine Protein TRACE Urine Glucose (UA) NEG Urine Ketones 15 Urine Blood NEG Urine Nitrite NEG Ur Leukocyte Esterase NEG Stool Leukocytes, Qual C. difficile Toxin A&B C. difficile Antigen C. difficile Interpret COVID-19 ([facility]) Negative COVID-19 Clin Com See Note 08/10/20 08/10/20 21:42 22:13 MCV MCH MCHC RDW Plt Count MPV Immature Gran % (Auto) Neut % (Auto) Lymph % (Auto) [place] % (Auto) Eos % (Auto) Baso % (Auto) Lymph # (Auto) [place] # (Auto) Eos # (Auto) Baso # (Auto) Abs Immat Gran (auto) Absolute Neuts (auto) Absolute Nucleated RBC Nucleated RBC % (auto) PT INR Anion Gap Estim Creat Clear Calc Estimated GFR Random Glucose Calcium Magnesium Total Bilirubin Direct Bilirubin AST ALT Alkaline Phosphatase Total Protein Albumin Lipase Urine Color Urine Appearance Urine pH Ur Specific Hope Urine Protein Urine Glucose (UA) Urine Ketones Urine Blood Urine Nitrite Ur Leukocyte Esterase Stool Leukocytes, Qual MANY: >10/OIF C. difficile Toxin A&B Negative C. difficile Antigen Negative C. difficile Interpret SEE NOTE COVID-19 ([facility]) COVID-19 Clin Com Imaging Radiologist's Impressions: Impressions Abdomen/Pelvis CT 08/10/20 20:06 IMPRESSION: There is a long segment of mild diffuse submucosal thickening, edema, of the descending colon and sigmoid consistent with colitis. Findings consistent with patient history of C. difficile. Assessment and Plan (1) Abdominal pain: Status: Acute (2) Nausea & vomiting: Status: Acute (3) Diarrhea: Status: Acute (4) Colitis: Status: Acute This is a 20-year-old male with no significant past medical history who presents to the hospital with bloody diarrhea # bloody diarrhea - most likely secondary to colitis: Inflammatory versus infectious - reports blood, 20 times daily, and although CT scan suggested possible C diff infection, C diff toxin negative - initially received p.o. Vanco in the ED, will hold - Campylobacter jejuni pending - will also consult GI given the concern for this being possible IBD - supportive measures DVT prophylaxis: early ambulation
[2020-08-11] VITALS (11 sets, daily range): BP systolic 104–140; BP diastolic 51–70; PULSE 74–94; RESP 16–18; TEMP 36–37.1; O2SAT 98–100
[2020-08-11] MEDS: vancomycin HCL 1,250 MG in 0.9 % Sodium Chloride 250 ML 166.67 MG IV (01:04)
--- NOTE | 2020-08-11 01:26 | PC.NURSE ---
PT RESTING IN BED, SKIN PWD RESPIRATIONS EVEN UNLABORED, OFFERS NO COMPLAINTS AT THIS TIME. IV VANCO HUNG AND INFUSING WITHOUT DIFFICULTY. AWAITING BED ASSIGNMENT, AWARE OF PLAN OF CARE.
--- NOTE | 2020-08-11 03:09 | PC.NURSE ---
PT ALERT AMB WITH STEADY GAIT TO BATHROOM. IV ABX COMPLETED. AWAITING BED ASSIGNMENT. NO COMPLAINTS AT THIS TIME.
[2020-08-11] MEDS: Morphine Sulfate 4 MG/ML CARTRIDGE IVPUSH ×2 (03:51→08:05)
--- NOTE | 2020-08-11 03:55 | PC.NURSE ---
PT MEDICATED PER MAR FOR REPORTS OF SEVERE ABD CRAMPING AFTER USING BATHROOM. GUARDING ABD WITH PILLOW, SLIGHTLY DIAPHORETIC.
--- NOTE | 2020-08-11 04:30 | PC.NURSE ---
PT REPORTS POSITIVE RELIEF FROM PAIN MEDS, CONTINUES TO AWAIT BED ASSIGNMENT.
[2020-08-11] MEDS: Enoxaparin Sodium 40 MG/0.4 ML SYRINGE SUBCUT (06:14)
[2020-08-11] MEDS: 0.9 % Sodium Chloride Flush 3 ML SYRINGE IVFLUSH ×4 (06:15→23:27)
--- NOTE | 2020-08-11 07:15 | PC.NURSE ---
Assumed care of pt. He is alert, rr even, speaks in full sentences, skin is pwdi, and he is in nad. He remains npo, and pain management is tolerable at this time at a 5/10. Plan is to admit to medical services with a consult to GI. Awaiting bed placement.
[2020-08-11 07:21] LABS: MANUAL DIFF FLAG NO
[2020-08-11 07:27] LABS: Basophils Percent Auto 0.4 % (0-2); Eosinophils Absolute Auto 0.1 X10*3/uL (0.0-0.4); Eosinophils Percent Auto 1.2 % (0-4); Hematocrit 39.6 % (42-52); Hemoglobin 14.3 g/dl (14.0-18.0); Imm Gran Abs Auto 0.01 X10*3/uL (0.00-0.03); Imm Gran Pct Auto 0.2 % (0.0-0.4); Lymphocytes Absolute Auto 1.3 X10*3/uL (1.2-4.9); Mean Corpuscular HGB Conc 36.1 g/dl (31.0-36.0); Mean Corpuscular Hemoglobin 31.6 pg (27.0-33.0); Mean Corpuscular Volume 87.4 fL (80-98); Mean Platelet Volume 9.8 fL (9.4-12.4); Monocytes Absolute Auto 0.7 X10*3/uL (0.1-1.2); Monocytes Percent Auto 14.1 % (2-11); Neutrophils Absolute Auto 2.8 X10*3/uL (2.0-8.3); Neutrophils Percent Auto 57.1 % (45-73); Platelet Count 254 X10*3/uL (160-400); Red Blood Count 4.53 X10*6/uL (4.60-5.80); Red Cell Distribution Width 11.6 % (11.0-16.0)
[2020-08-11 07:44] LABS: Anion Gap 18 (12-20); Blood Urea Nitrogen 9 mg/dL (9-16); Calcium 9.2 mg/dL (8.4-10.2); Carbon Dioxide 24 mmol/L (22-29); Chloride 100 mmol/L (96-108); Creatinine Clr Calc Pharmacy 138.4; Estimated Glomerular Filt Rate > 60; Glucose Random 89 mg/dL (60-115); Potassium 4.1 mmol/L (3.3-5.1); Sodium 138 mmol/L (135-145)
[2020-08-11] MEDS: ondansetron HCL 4 MG/2 ML VIAL IVPUSH ×3 (08:05→23:26)
--- NOTE | 2020-08-11 12:41 | HO.PM.IMPN ---
Subjective Subjective Date of Service: 08/12/20 Interval History: Seen in f/u for abdominal pain d/t colitis. Has lot of abdominal pain Review of Systems Gen: no fever Resp: no sob, no cough CV: no chest, no MONZON, no leg edema GI: + n/v, +abd pain Neuro: No confusion Physical Exam Vital Signs: Vital Signs: Last Vital Signs Temp 97.7 F 08/11/20 08:00 Pulse 87 08/11/20 08:00 Resp 17 08/11/20 08:00 BP 136/67 08/11/20 08:00 Pulse Ox 99 08/11/20 08:00 Body Mass Index 28.0 General: AO X 3, no acute distress Resp: CTA bilateral CVS: S1,S2,RRR GI: +BS, diffuse tenderness, no guarding no rebound Skin: No rash Neuro: motor grossly intact Psych: appropriate affect Objective Data Current Medications Generic Name Dose Route Start Last Admin Trade Name Freq PRN Reason Stop Dose Admin Acetaminophen 650 mg 08/11/20 04:44 Acetaminophen 325 Mg Tablet PO Q6H PRN Pain, Mild (Pain Scale 1-3) Morphine Sulfate 4 mg 08/11/20 03:34 08/11/20 08:05 Morphine Sulfate 4 Mg/Ml Cartridge IVPUSH 4 mg Q6H PRN Administration Pain, Severe (Pain Scale 7-10) Ondansetron HCl 4 mg 08/11/20 04:44 08/11/20 08:05 Ondansetron Hcl 4 Mg/2 Ml Vial IVPUSH 4 mg Q8H PRN Administration Nausea and Vomiting Sodium Chloride 3 ml 08/11/20 04:44 08/11/20 07:00 0.9 % Sodium Chloride Flush 3 Ml Syringe IVFLUSH 3 ml QSHIFT NADIA Administration Labs CBC & Chem 7: 08/11/20 07:02 08/11/20 07:02 Microbiology Microbiology Results: Microbiology 08/10/20 21:42 Stool Stool Culture - Preliminary Culture in progress. Assessment and Plan (1) Colitis: Status: Acute (2) Abdominal pain: Status: Acute (3) Nausea & vomiting: Status: Acute (4) Diarrhea: Status: Acute Assessment and Plan: This is a 20-year-old male with no significant past medical history who presents to the hospital with bloody diarrhea # bloody diarrhea/Colitis Inflammatory versus infectious - reports blood, 20 times daily - initially received p.o. Vanco in the ED, will hold any more as less likely cdif - Campylobacter jejuni pending - will also consult GI given the concern for this being possible IBD - supportive measures -Flagyl 500 q8 IV -IV Dilaudid for pain DVT prophylaxis: early ambulation
[2020-08-11] MEDS: HYDROmorphone HCl 0.5 MG/0.5 ML SYRINGE IVPUSH ×3 (13:12→21:33)
[2020-08-11] MEDS: levoFLOXacin/D5W 500 MG/100 ML PIGGYBACK 100 MG IV (14:23)
--- NOTE | 2020-08-11 14:33 | CONS_ITS ---
DATE OF SERVICE: 08/11/2020 REFERRING PHYSICIAN: Hugo Michael MD REASON FOR CONSULTATION: Abdominal pain, rectal bleeding, and colitis. HISTORY OF PRESENT ILLNESS: The patient is a previously healthy 20-year-old man, who was admitted to the hospital after presenting to the emergency room with complaints of abdominal pain, diarrhea, and rectal bleeding. Symptoms began approximately 2 days prior to admission when he noted the onset of diarrhea, which was initially liquid and nonbloody, but became bloody with associated generalized bilateral lower quadrant abdominal pain and nausea and vomiting of food material that he ate. There was no hematemesis or melena. He reports no ill contacts, unusual food ingestions, or travel and denies any prior history of colitis. He was evaluated in the emergency department, where laboratory studies were obtained, which are reviewed and were remarkable for a white blood cell count of 4.6, hematocrit was 41.9, and chemistries were fairly unremarkable. Imaging studies were obtained with CT scanning of the abdomen and pelvis, which is reviewed. This is interpreted as showing diffuse submucosal thickening over the left colon to the proximal descending colon and sigmoid, consistent with a mild colitis. Stool testing was obtained and is negative for Clostridium difficile. He did have white blood cells. He had some chills and subjectively felt warm, but did not take his temperature. He denies a prior history of colitis and there is no family history of inflammatory bowel disease. PAST MEDICAL HISTORY: Anxiety/depression. CURRENT MEDICATIONS: Current medication list is reviewed in the chart. ALLERGIES: AMOXICILLIN. FAMILY HISTORY: This is reviewed with the patient and is noncontributory. SOCIAL HISTORY: There is current intermittent tobacco and alcohol use. He denies drug use. He works in [employer] systems at [employer]. REVIEW OF SYSTEMS: SKIN: No pruritus. HEENT: Negative. CARDIOPULMONARY: He denies shortness of breath or chest pain. GASTROINTESTINAL: As above. GENITOURINARY: Negative. NEUROPSYCHIATRIC: Negative. PHYSICAL EXAMINATION: GENERAL: Shows a pleasant male, in no acute distress. VITAL SIGNS: Reviewed in the electronic medical record and are stable. SKIN: Anicteric. HEENT: Shows no scleral icterus. NECK: Without lymphadenopathy or thyromegaly. LUNGS: Clear. HEART: Regular rate and rhythm. S1, S2. No murmur. ABDOMEN: Soft without focal masses. There is some mild bilateral lower quadrant tenderness. Bowel sounds are present. No organomegaly is noted. EXTREMITIES: Without edema. LABORATORY DATA: Laboratory data and CT scanning are reviewed. IMPRESSION: Colitis. This appears most consistent with an acute infectious colitis. Based on his presentation, ischemic colitis would be extremely unlikely in his age group and I doubt this represents a primary presentation of inflammatory bowel disease. Stool studies have been obtained and are pending. C diff is negative. I would recommend empiric antibiotic coverage with Levaquin and Flagyl for now. We will arrange colonoscopy tomorrow for further evaluation. I have discussed risks and benefits of the procedure with him. He understands these and agrees to proceed. MD DONNIE Velazquez/MORIS / [phone]
--- NOTE | 2020-08-11 14:52 | MHC.CM.PN ---
EMR REVIEWED, PT ADMITTED W/COLITIS, COLONOSCOPY SCHED FOR AM, CM MET WITH PT WHO IS ALERT & ORIENTED, REPORTS HE LIVES W/FATHER AND GRANDMOTHER, PT WORKS [employer] AND IS REQUESTING A NOTE TO BE FAXED TO [phone] ATT: JOCELINE SIMONS, PT CONCERNED HE WOULD NEED TO NOTIFY WORK PRIOR TO D/C, CM CONTACTED PT'S WALL INSULATION SPRAYER AT 3:05PM ([phone]) AND PER WALL INSULATION SPRAYER A RETURN TO WORK NOTE WILL BE SUFFICIENT. PT IS INDEPENDENT AND DENIES USE OF DME OR HOME SERVICES. DISCHARGE PLAN: HOME SELF-CARE, FAMILY TO TRANSPORT. PCP: DEIRDRE GALLARDO
[2020-08-11] MEDS: bisacodyL 5 MG TABLET.DR 10 MG PO (15:15)
[2020-08-11] MEDS: polyethylene glycoL 3350 17 GM POWD.PACK 238 GM PO (15:16)
[2020-08-11] MEDS: metroNIDAZOLE/NS 500 MG/100 ML PIGGYBACK 100 MG IV ×2 (15:30→23:27)
[2020-08-12] VITALS (10 sets, daily range): BP systolic 98–143; BP diastolic 54–81; PULSE 77–93; RESP 16–20; TEMP 36–37.1; O2SAT 97–100
[2020-08-12] MEDS: HYDROmorphone HCl 0.5 MG/0.5 ML SYRINGE IVPUSH ×5 (01:31→22:47)
--- NOTE | 2020-08-12 03:08 | PC.NURSE ---
08/11/20 2300 lab called with critical 1/2 blood cultures positive for gram + cocci in clusters. notified.no new orders at this time.already on iv flagyl and iv levaquin.
--- NOTE | 2020-08-12 08:10 | HO.PM.IMPN ---
Subjective Subjective Date of Service: 08/12/20 Interval History: Seen in f/u for abdominal pain d/t colitis. 11/26 pain today Review of Systems Gen: no fever Resp: no sob, no cough CV: no chest, no MONZON, no leg edema GI: - n/v, +abd pain Neuro: No confusion Physical Exam Vital Signs: Vital Signs: Last Vital Signs Temp 97.3 F 08/12/20 07:47 Pulse 77 08/12/20 07:47 Resp 18 08/12/20 07:47 BP 120/54 L 08/12/20 04:00 Pulse Ox 98 08/12/20 07:47 Body Mass Index 28.0 Objective Data Current Medications Generic Name Dose Route Start Last Admin Trade Name Freq PRN Reason Stop Dose Admin Acetaminophen 650 mg 08/11/20 04:44 Acetaminophen 325 Mg Tablet PO Q6H PRN Pain, Mild (Pain Scale 1-3) Hydromorphone HCl 0.5 mg 08/11/20 12:47 08/12/20 06:06 Hydromorphone Hcl 0.5 Mg/0.5 Ml Syringe IVPUSH 0.5 mg Q4H PRN Administration Pain, Severe (Pain Scale 7-10) Levofloxacin 500 mg in 100 mls @ 100 mls/hr 08/11/20 14:00 08/11/20 15:25 Levaquin IV Infused Q24H NADIA Infusion Metronidazole 500 mg in 100 mls @ 100 mls/hr 08/11/20 16:00 08/12/20 00:46 Flagyl IV Infused Q8H NADIA Infusion Ondansetron HCl 4 mg 08/11/20 04:44 08/11/20 23:26 Ondansetron Hcl 4 Mg/2 Ml Vial IVPUSH 4 mg Q8H PRN Administration Nausea and Vomiting Sodium Chloride 3 ml 08/11/20 04:44 08/11/20 23:27 0.9 % Sodium Chloride Flush 3 Ml Syringe IVFLUSH 3 ml QSHIFT NADIA Administration Labs CBC & Chem 7: 08/11/20 07:02 08/11/20 07:02 Microbiology Microbiology Results: Microbiology 08/10/20 22:40 Blood - Venous Blood Culture - Preliminary 08/10/20 22:40 Blood - Venous Blood Culture - Preliminary No growth after 24 hours. 08/10/20 21:42 Stool Stool Culture - Preliminary Culture in progress. Assessment and Plan (1) Colitis: Status: Acute (2) Abdominal pain: Status: Acute (3) Nausea & vomiting: Status: Acute (4) Diarrhea: Status: Acute Assessment and Plan: This is a 20-year-old male with no significant past medical history who presents to the hospital with bloody diarrhea # bloody diarrhea/Colitis Inflammatory versus infectious - reports blood, 20 times daily - initially received p.o. Vanco in the ED, will hold any more as less likely cdif - Campylobacter jejuni pending - will also consult GI given the concern for this being possible IBD - supportive measures -Flagyl 500 q8 IV and Levaquin 500 daily -Plan for colonoscopy by Dr. Saul today 08/12 -IV Dilaudid for pain DVT prophylaxis: early ambulation
[2020-08-12] MEDS: metroNIDAZOLE/NS 500 MG/100 ML PIGGYBACK 100 MG IV ×2 (08:42→16:10)
[2020-08-12] MEDS: 0.9 % Sodium Chloride Flush 3 ML SYRINGE IVFLUSH ×3 (08:46→22:50)
--- NOTE | 2020-08-12 10:14 | HO.ANESPROP2 ---
[facility] Active Problems Active Problems: All Active Problems (Updated 08/10/20 @ 22:52 by FLIP Jacobson) Colitis (Acute) Diarrhea (Acute) Abdominal pain (Acute) Nausea & vomiting (Acute) Hepatitis (Acute) Diarrhea (Acute) Insomnia (Acute) TMJ (temporomandibular joint disorder) (Acute) Sinusitis (Acute) Anxiety (Acute) Depression (Acute) Past Medical History Medical History Anxiety Family History Family History Father No problems noted. Mother No problems noted. Sister No problems noted. Surgical History Surgical History No pertinent past surgical history Social History Social History Household Members: Family Housing: House Do you presently have visiting nurse or other home services: No Smoking Status: Light tobacco smoker Use of substances other than those prescribed or required for medical reasons: No Currently Displaying Signs/Symptoms of Drug Intoxication Withdrawal: No Have you been hit, kicked, punched, or otherwise hurt by someone within the past year? If so, by whom?: No Do you feel safe in your current relationship?: No Current Relationship Is there a partner from a previous relationship who is making you feel unsafe now?: No Are you made to feel afraid or neglected: No Advance Directives: No Advance Directives Information Provided: Yes Do you have thoughts of harming others: None Do you have a plan to hurt others: No Plan Recently lost weight without trying: No service: No Current occupational status: employed Meds Allergies Allergy/AdvReac Type Severity Reaction Status Date / Time amoxicillin [AMOXICILLIN] Allergy Unknown hives Verified 04/20/20 08:35 Active Medications: Current Medications Generic Name Dose Route Start Last Admin Trade Name Freq PRN Reason Stop Dose Admin Acetaminophen 650 mg 08/11/20 04:44 Acetaminophen 325 Mg Tablet PO Q6H PRN Pain, Mild (Pain Scale 1-3) Hydromorphone HCl 0.5 mg 08/11/20 12:47 08/12/20 06:06 Hydromorphone Hcl 0.5 Mg/0.5 Ml Syringe IVPUSH 0.5 mg Q4H PRN Administration Pain, Severe (Pain Scale 7-10) Levofloxacin 500 mg in 100 mls @ 100 mls/hr 08/11/20 14:00 08/11/20 15:25 Levaquin IV Infused Q24H NADIA Infusion Metronidazole 500 mg in 100 mls @ 100 mls/hr 08/11/20 16:00 08/12/20 08:42 Flagyl IV 100 mls/hr Q8H NADIA Administration Ondansetron HCl 4 mg 08/11/20 04:44 08/11/20 23:26 Ondansetron Hcl 4 Mg/2 Ml Vial IVPUSH 4 mg Q8H PRN Administration Nausea and Vomiting Sodium Chloride 3 ml 08/11/20 04:44 08/12/20 08:46 0.9 % Sodium Chloride Flush 3 Ml Syringe IVFLUSH 3 ml QSHIFT NADIA Administration Exam Exam Date and Time: August 12, 2020 1014 Height,Weight and Vital Signs: Height 5 ft 9 in Weight 86.183 kg Last Vital Signs Temp 96.8 F 08/12/20 10:10 Pulse 93 08/12/20 10:10 Resp 18 08/12/20 10:10 BP 117/75 08/12/20 10:10 Pulse Ox 97 08/12/20 10:10 Pertinent Lab Results Pertinent Lab Results: Laboratory Tests 08/10/20 08/10/20 08/10/20 18:28 18:28 18:29 WBC 4.6 L RBC 4.74 Hgb 15.0 Hct 41.9 L MCV 88.4 MCH 31.6 MCHC 35.8 RDW 11.6 Plt Count 248 MPV 9.8 Immature Gran % (Auto) 0.2 Neut % (Auto) 59.6 Lymph % (Auto) 23.8 [place] % (Auto) 15.4 H Eos % (Auto) 0.6 Baso % (Auto) 0.4 Lymph # (Auto) 1.1 L [place] # (Auto) 0.7 Eos # (Auto) 0.0 Baso # (Auto) 0.0 Abs Immat Gran (auto) 0.01 Absolute Neuts (auto) 2.8 Absolute Nucleated RBC 0.000 Nucleated RBC % (auto) 0.0 PT 14.3 H INR 1.2 H Sodium Potassium Chloride Carbon Dioxide Anion Gap BUN Creatinine Estim Creat Clear Calc Estimated GFR Random Glucose Calcium Magnesium Total Bilirubin Direct Bilirubin AST ALT Alkaline Phosphatase Total Protein Albumin Lipase 10 Urine Color Urine Appearance Urine pH Ur Specific [place] Urine Protein Urine Glucose (UA) Urine Ketones Urine Blood Urine Nitrite Ur Leukocyte Esterase Stool Leukocytes, Qual C. difficile Toxin A&B C. difficile Antigen C. difficile Interpret COVID-19 ([facility]) COVID-19 Clin Com 08/10/20 08/10/20 08/10/20 18:29 18:29 20:44 WBC RBC Hgb Hct MCV MCH MCHC RDW Plt Count MPV Immature Gran % (Auto) Neut % (Auto) Lymph % (Auto) [place] % (Auto) Eos % (Auto) Baso % (Auto) Lymph # (Auto) [place] # (Auto) Eos # (Auto) Baso # (Auto) Abs Immat Gran (auto) Absolute Neuts (auto) Absolute Nucleated RBC Nucleated RBC % (auto) PT INR Sodium 137 Potassium 3.8 Chloride 99 Carbon Dioxide 25 Anion Gap 17 BUN 10 Creatinine 1.04 Estim Creat Clear Calc TNP Estimated GFR > 60 Random Glucose 93 Calcium 9.3 Magnesium 2.0 Total Bilirubin 1.2 H Direct Bilirubin 0.5 AST 15 ALT 13 Alkaline Phosphatase 93 Total Protein 7.1 Albumin 4.4 Lipase Urine Color DARK YELLOW Urine Appearance CLEAR Urine pH 5.5 Ur Specific [place] >= 1.030 H Urine Protein TRACE Urine Glucose (UA) NEG Urine Ketones 15 Urine Blood NEG Urine Nitrite NEG Ur Leukocyte Esterase NEG Stool Leukocytes, Qual C. difficile Toxin A&B C. difficile Antigen C. difficile Interpret COVID-19 ([facility]ISHNU) Negative COVID-19 Clin Com See Note 08/10/20 08/10/20 08/11/20 21:42 22:13 07:02 WBC 5.0 RBC 4.53 L Hgb 14.3 Hct 39.6 L MCV 87.4 MCH 31.6 MCHC 36.1 H RDW 11.6 Plt Count 254 MPV 9.8 Immature Gran % (Auto) 0.2 Neut % (Auto) 57.1 Lymph % (Auto) 27.0 [place] % (Auto) 14.1 H Eos % (Auto) 1.2 Baso % (Auto) 0.4 Lymph # (Auto) 1.3 [place] # (Auto) 0.7 Eos # (Auto) 0.1 Baso # (Auto) 0.0 Abs Immat Gran (auto) 0.01 Absolute Neuts (auto) 2.8 Absolute Nucleated RBC 0.000 Nucleated RBC % (auto) 0.0 PT INR Sodium Potassium Chloride Carbon Dioxide Anion Gap BUN Creatinine Estim Creat Clear Calc Estimated GFR Random Glucose Calcium Magnesium Total Bilirubin Direct Bilirubin AST ALT Alkaline Phosphatase Total Protein Albumin Lipase Urine Color Urine Appearance Urine pH Ur Specific [place] Urine Protein Urine Glucose (UA) Urine Ketones Urine Blood Urine Nitrite Ur Leukocyte Esterase Stool Leukocytes, Qual MANY: >10/OIF C. difficile Toxin A&B Negative C. difficile Antigen Negative C. difficile Interpret SEE NOTE COVID-19 ([facility]) COVID-19 Clin Com 08/11/20 07:02 WBC RBC Hgb Hct MCV MCH MCHC RDW Plt Count MPV Immature Gran % (Auto) Neut % (Auto) Lymph % (Auto) [place] % (Auto) Eos % (Auto) Baso % (Auto) Lymph # (Auto) [place] # (Auto) Eos # (Auto) Baso # (Auto) Abs Immat Gran (auto) Absolute Neuts (auto) Absolute Nucleated RBC Nucleated RBC % (auto) PT INR Sodium 138 Potassium 4.1 Chloride 100 Carbon Dioxide 24 Anion Gap 18 BUN 9 Creatinine 0.91 Estim Creat Clear Calc 138.4 Estimated GFR > 60 Random Glucose 89 Calcium 9.2 Magnesium Total Bilirubin Direct Bilirubin AST ALT Alkaline Phosphatase Total Protein Albumin Lipase Urine Color Urine Appearance Urine pH Ur Specific [place] Urine Protein Urine Glucose (UA) Urine Ketones Urine Blood Urine Nitrite Ur Leukocyte Esterase Stool Leukocytes, Qual C. difficile Toxin A&B C. difficile Antigen C. difficile Interpret COVID-19 (VISHNU) COVID-19 Clin Com Airway Mallampati Class: I TM Dist: >3cm Neck ROM: Full Loose/Missing/Broken Teeth: No Heart: RRR Lungs: CTA Assessment and Plan Assessment Anesthesia Assessment: Anesthesia Plan Discussed and Chart Reviewed Final Anesthetic Review NPO: Yes ASA Class: II Final Preanesthetic Review: Meds/Allgs Chart Reviewed, Consent Obtained/Reviewed and Anes Risks/Benef Reviewed Patient Risk: Low Procedure Risk: Low Anesthetic Plan Anesthetic Plan: MAC: Disposition: Standard PACU
--- NOTE | 2020-08-12 11:22 | PM.OP ---
Brief Operative Note Date of Service: 08/12/20 Pre-op diagnosis: colitis Post-op diagnosis: same Procedure: colonoscopy Surgeon: Dioni Saul Anesthesia: MAC Estimated blood loss (mL): 5 Pathology: other (bx ti, r colon sigmoid) Condition: stable Disposition: PACU
--- NOTE | 2020-08-12 11:23 | PM.EVENT ---
Event Note Date of Service: 08/12/20 Event Note: colonoscopy report dictated mild pancolitis, edematous terminal ileum biopsies taken rec advance diet f/u biopsy results.
--- NOTE | 2020-08-12 11:45 | OP_ITS ---
SURGEON: Dioni Saul MD INDICATIONS: Colitis. PREOPERATIVE DIAGNOSIS: POSTOPERATIVE DIAGNOSIS: PROCEDURE PERFORMED: Colonoscopy to the terminal ileum with biopsy. ESTIMATED BLOOD LOSS: COMPLICATIONS: ANESTHESIA: ASSISTANTS: SPECIMENS: MEDICATIONS: Monitored anesthesia care. DESCRIPTION OF PROCEDURE: History and physical performed. The risks and benefits of the procedure were explained to the patient. Informed consent was obtained. The patient was placed in left lateral decubitus position. A digital rectal exam was performed and was found to be normal. The Olympus pediatric video colonoscope was introduced into the rectum and advanced to the cecum without difficulty. The cecum was identified by transillumination, palpation, and identification of ileocecal valve. Examination was performed and the scope was removed. He tolerated the procedure well and was taken to recovery area in stable condition. FINDINGS: The terminal ileum was examined and appeared somewhat nodular and edematous. Biopsies were obtained from the terminal ileum. There was no ulceration. The visualized colonic mucosa showed changes of colitis consistent with erythema, edema, and loss of vascular pattern. This was patchy throughout. No ulceration was identified. Retroflexed examination was normal. Biopsies were obtained from the right colon and sigmoid. IMPRESSION: Colitis. RECOMMENDATIONS: 1. Advanced diet. 2. Follow up the biopsy results. MD DONNIE Velazquez/MODL / [id number]
[2020-08-12] MEDS: levoFLOXacin/D5W 500 MG/100 ML PIGGYBACK 100 MG IV (13:03)
[2020-08-12] MEDS: ondansetron HCL 4 MG/2 ML VIAL IVPUSH (18:23)
[2020-08-12] MEDS: Acetaminophen 325 MG TABLET 650 MG PO (18:40)
[2020-08-12] MEDS: Ketorolac Tromethamine 15 MG/ML VIAL IV (19:49)
[2020-08-13] VITALS (8 sets, daily range): BP systolic 99–134; BP diastolic 53–62; PULSE 58–89; RESP 14–18; TEMP 36.1–36.6; O2SAT 95–100
[2020-08-13] MEDS: metroNIDAZOLE/NS 500 MG/100 ML PIGGYBACK 100 MG IV (00:24)
[2020-08-13] MEDS: Ketorolac Tromethamine 15 MG/ML VIAL IV ×3 (02:32→13:44)
--- NOTE | 2020-08-13 08:07 | HO.PM.IMPN ---
Subjective Subjective Date of Service: 08/13/20 Interval History: Seen in f/u for abdominal pain d/t colitis. Minimal pain this morning. Review of Systems Gen: no fever Resp: no sob, no cough CV: no chest, no MONZON, no leg edema GI: - n/v, +abd pain Neuro: No confusion Physical Exam Vital Signs: Vital Signs: Last Vital Signs Temp 98 F 08/13/20 08:00 Pulse 79 08/13/20 07:10 Resp 18 08/13/20 07:10 BP 109/55 L 08/13/20 07:10 Pulse Ox 100 08/13/20 07:10 Body Mass Index 28.0 General: AO X 3, no acute distress Resp: CTA bilateral CVS: S1,S2,RRR GI: +BS, NT, no distention Skin: No rash Neuro: motor grossly intact Psych: appropriate affect Objective Data Current Medications Generic Name Dose Route Start Last Admin Trade Name Freq PRN Reason Stop Dose Admin Acetaminophen 650 mg 08/11/20 04:44 08/12/20 18:40 Acetaminophen 325 Mg Tablet PO 650 mg Q6H PRN Administration Pain, Mild (Pain Scale 1-3) Hydromorphone HCl 0.5 mg 08/11/20 12:47 08/12/20 22:47 Hydromorphone Hcl 0.5 Mg/0.5 Ml Syringe IVPUSH 0.5 mg Q4H PRN Administration Pain, Severe (Pain Scale 7-10) Levofloxacin 500 mg in 100 mls @ 100 mls/hr 08/11/20 14:00 08/12/20 14:08 Levaquin IV Infused Q24H NADIA Infusion Metronidazole 500 mg in 100 mls @ 100 mls/hr 08/11/20 16:00 08/13/20 01:27 Flagyl IV Infused Q8H NADIA Infusion Ketorolac Tromethamine 15 mg 08/12/20 20:00 08/13/20 02:32 Ketorolac Tromethamine 15 Mg/Ml Vial IV 08/17/20 19:59 15 mg Q6H NADIA Administration Ondansetron HCl 4 mg 08/11/20 04:44 08/12/20 18:23 Ondansetron Hcl 4 Mg/2 Ml Vial IVPUSH 4 mg Q8H PRN Administration Nausea and Vomiting Sodium Chloride 3 ml 08/11/20 04:44 08/12/20 22:50 0.9 % Sodium Chloride Flush 3 Ml Syringe IVFLUSH 3 ml QSHIFT NADIA Administration Labs CBC & Chem 7: 08/11/20 07:02 08/11/20 07:02 Microbiology Microbiology Results: Microbiology 08/10/20 21:42 Stool Stool Culture - Preliminary Culture in progress. 08/10/20 22:40 Blood - Venous Blood Culture - Preliminary 08/10/20 22:40 Blood - Venous Blood Culture - Preliminary Assessment and Plan (1) Colitis: Status: Acute (2) Abdominal pain: Status: Acute (3) Nausea & vomiting: Status: Acute (4) Diarrhea: Status: Acute Assessment and Plan: 20-year-old male with no significant past medical history who presents to the hospital with bloody diarrhea # bloody diarrhea/Colitis Inflammatory versus infectious - reports blood, 20 times daily - initially received p.o. Vanco in the ED, will hold any more as less likely cdif - Campylobacter jejuni pending -Colonoscopy by Dr. Saul on 08/12:mild pancolitis, edematous terminal ileum biopsies taken -Flagyl 500 q8 IV and Levaquin 500 daily--> change to PO Advance diet and possibly home today Probably home later today DVT prophylaxis: early ambulation
--- NOTE | 2020-08-13 08:14 | P.DS_ITS ---
DS: Providers Provider Date of Service: 09/17/20 Date of admission: 08/10/20 23:36 Primary care physician: Jurgen Chambers [facility]- Consults: 08/11/20 04:44 Consult to Gastroenterology Routine Consulting Provider: Tristan Leung Reason for consultation: extensive colitis, evaluate for IBD? Has provider been notified: No DS: Diagnosis Discharge Diagnosis (1) Colitis: Status: Acute (2) Abdominal pain: Status: Resolved (3) Nausea & vomiting: Status: Resolved (4) Diarrhea: Status: Resolved DS: Medications Discharge Medications Home Medications: Previous Rx's Medication Instructions Recorded trazodone 100 mg tablet 100 mg PO BEDTIME 30 Days #30 tab 06/23/20 sertraline 100 mg tablet 100 mg PO DAILY #90 tab 06/27/20 DS: Summary Hospital Course Hospital Course: 20-year-old male with no significant past medical history who presents to the hospital with 4 days of abdominal pain as well as bloody diarrhea. Patient reports that he initially started with nausea and vomiting that progressed to diarrhea about 20-30 times daily, the diarrhea has been bloody but small amount, the blood resolved today prior to coming to the hospital, the abdominal pain is diffuse but mostly worst at lower abdomen, 10/10, associated with nausea, the vomiting has resolved at this time, constant, patient has also decreased his oral intake due to the nausea and abdominal pain. No previous similar episode. Denies any family history of IBD. On arrival to the ED hemodynamically stable with no significant abnormal vitals Lab significant for a WBC count of 4.6, PT of 14.3, INR of 1.2, UA negative, C diff negative, come below back to [place] night pending, abdominal pelvic CT showed a long segment of mild diffuse submucosal thickening and edema of the descending colon and sigmoid consistent with colitis. Patient will be admitted for further management Hospital course:He was admitted for colitis associated with bloody diarrhea, initially given PO Vanco for possible c dif, yet C dif was negative. so was started on IV Flagyl and Levaquin and Gi ultimately performed colonocopy mild pancolitis, edematous terminal ileum biopsies taken, stool culture from 08/10 is growing Salmonela and likely food borne and will therefore treat with Levaquin for 14 days. Was seen by Dr. Capone and recommends HIV test which pending and levaquin as stated. Staph species in blood is likely contamination and no specific treatment at this time. He is doing better, pain inmproved and diet advaced to regular diet Time Spent with Patient Time attestation: Total time spent providing and/or coordinating discharge services: Discharge coordination time: Greater than 30 minutes Physical Exam Vital Signs: Vital Signs: Last Vital Signs Temp 98 F 08/13/20 08:00 Pulse 79 08/13/20 07:10 Resp 18 08/13/20 07:10 BP 109/55 L 08/13/20 07:10 Pulse Ox 100 08/13/20 07:10 Body Mass Index 28.0 General: AO X 3, no acute distress Resp: CTA bilateral CVS: S1,S2,RRR GI: +BS, NT, no distention Skin: No rash Neuro: motor grossly intact Psych: appropriate affect DS: Data Data Completed and Pending Pending studies at discharge: Pending at discharge 08/12/20 10:57 Surgical [PTH] Routine Labs on day of discharge: Preliminary micro results at discharge 08/10/20 21:42 Stool Culture - Preliminary Stool Salmonella species 08/10/20 22:40 Blood Culture - Preliminary Blood - Venous 08/10/20 22:40 Blood Culture - Preliminary Blood - Venous Discharge Plan Discharge Anticipated Discharge Date/Time: 08/13/20 17:14 Patient Disposition: Home, Self-Care Discharge Diagnosis: Acute colitis Referrals: Jurgen Chambers, [facility]- [Primary Care Provider] - Discharge Medications: New levofloxacin 750 mg tablet 750 mg PO DAILY 7 Days Qty: 12 RF: 0 oxycodone 5 mg tablet 5 mg PO Q6H PRN (Reason: pain) Qty: 10 RF: 0 Continued sertraline 100 mg tablet 100 mg PO DAILY Qty: 90 RF: 0 No Action trazodone 100 mg tablet 100 mg PO BEDTIME Qty: 30 RF: 2 Discharge Orders: Discharge Order (Routine); Ordered 08/13/20 Ordered By: Hugo Michael Diet: advance to usual diet Activity on Discharge: As tolerated Stand Alone Forms: Patient Portal Discharge page Care Plan Goals: complete treatement for salmonela colitis Health Concerns: colitis due to Salmonela Plan of Treatment: Take Levaquin as dreicted, follow up with your Doctor in a week, call for appointment Assessment: Acute colitis, Discharge Date/Time: 08/13/20 18:09
[2020-08-13] MEDS: levoFLOXacin 500 MG TABLET PO (08:57)
[2020-08-13] MEDS: 0.9 % Sodium Chloride Flush 3 ML SYRINGE IVFLUSH ×2 (08:57→15:49)
[2020-08-13] MEDS: ondansetron HCL 4 MG/2 ML VIAL IVPUSH (09:06)
--- NOTE | 2020-08-13 13:49 | HO.POSTANES ---
Post Anesthesia Evaluation Post Anesthesia Evaluation Vital Signs: Vital Signs Temp Pulse Resp BP Pulse Ox 08/13/20 12:00 98 F 58 18 08/13/20 10:32 97.1 F 73 18 107/62 99 08/13/20 08:00 98 F 08/13/20 07:10 97 F 79 18 109/55 L 100 08/13/20 04:00 16 08/13/20 03:42 97 F 76 16 99/53 L 95 Anesthesia: Monitored Mental Status: Awake Pain Control: Satisfactory Nausea/Vomiting: None Hydration: Adequate Anesthesia-Related Issues: No Anes. Related Issues
[2020-08-13 22:35] LABS: HIV AB/AG Nonreactive (Nonreactive); HIV Num 1 0.06 S/CO (0.00-0.99)
[2020-08-18 18:17] LABS: Camplyobacter jejuni Antibody <0.90
== END 2020-08-13 18:09 | disposition home or self-care (01) | DRG 373 ==
LOC: HO.ED 21:53 → HO.EDOVER 08-11 00:05 → HO.S3 08-11 07:52
PROVIDERS: Internal Medicine; Internal Medicine Gastroenterology; Physician Assistant Medical; Admitting Provider Internal Medicine; Emergency Provider Emergency Medicine; PCP Nurse Practitioner Family; Visit Provider Internal Medicine
PROC: 0DJD8ZZ Inspection of Lower Intestinal Tract, Via Natural or Artificial Opening Endoscopic (ICD-10-PCS; CPT 45378; principal; 2020-08-12 10:10)
DX: A02.0 Salmonella enteritis (principal); F41.9 Anxiety disorder, unspecified; F17.210 Nicotine dependence, cigarettes, uncomplicated; Z71.6 Tobacco abuse counseling; Z20.822 Contact with and (suspected) exposure to COVID-19; Z88.0 Allergy status to penicillin; Z79.899 Other long term (current) drug therapy
CPT/HCPCS: 36415; 74177; 80048; 80076; 81003; 83690; 83735; 85025; 85610; 86625; 87040; 87045; 87046; 87077; 87186; 87205; 87324; 87389; 87449; 87635; 88305; 89055; 96365; 96366; 96368; 96375; 99285; 99291; J1170; J1650; J1885; J1956; J2250; J2270; J2405; J2765; J3370; Q9967

== ENCOUNTER → 2020-10-06 08:30 | Outpatient (BNVA) | payer OTHER, SELFPAY | PROVIDERS: PCP Nurse Practitioner Family; Visit Provider Nurse Practitioner ==

== ENCOUNTER → 2020-11-18 08:18 | Outpatient (BNVA) | payer OTHER, SELFPAY | PROVIDERS: PCP Nurse Practitioner Family; Visit Provider Nurse Practitioner ==

== ENCOUNTER 2021-04-07 16:44 | Observation (INO) | payer OTHER, SELFPAY ==
[2021-04-07] VITALS (7 sets, daily range): BP systolic 122–150; BP diastolic 73–85; PULSE 81–108; RESP 18–20; TEMP 36.4–36.6; O2SAT 97–100; BMI 24.3
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
--- NOTE | 2021-04-07 16:51 | ECG_ITS ---
Test Reason : SEIZURE Blood Pressure : / mmHG Vent. Rate : 087 BPM Atrial Rate : 087 BPM P-R Int : 142 ms QRS Dur : 104 ms QT Int : 396 ms P-R-T Axes : 050 051 006 degrees QTc Int : 476 ms Normal sinus rhythm Nonspecific T wave abnormality Abnormal ECG When compared with ECG of 09-AUG-2019 13:48, T wave amplitude has decreased in Inferior leads Lateral leads Referred By: Maldonado Ríos Electronically Signed By:DELIA LEVI MD
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
[2021-04-07 17:12] LABS: MANUAL DIFF FLAG NO
[2021-04-07 17:13] LABS: Basophils Absolute Auto 0.1 X10*3/uL (0.0-0.2); Eosinophils Absolute Auto 0.2 X10*3/uL (0.0-0.4); Eosinophils Percent Auto 3.2 % (0-4); Hematocrit 39.3 % (42.0-52.0); Hemoglobin 14.4 g/dl (14.0-18.0); Mean Corpuscular HGB Conc 36.6 g/dl (31.0-36.0); Mean Corpuscular Hemoglobin 31.9 pg (27.0-33.0); Mean Corpuscular Volume 86.9 fL (80.0-98.0); Mean Platelet Volume 9.6 fL (9.4-12.4); Monocytes Absolute Auto 0.4 X10*3/uL (0.1-1.2); Neutrophils Absolute Auto 2.5 x10*3/uL (2.0-8.3); Neutrophils Percent Auto 48.8 % (45-73); Platelet Count 289 X10*3/uL (160-400); Red Blood Count 4.52 X10*6/uL (4.60-5.80); Red Cell Distribution Width 11.8 % (11.0-16.0)
[2021-04-07] MEDS: Ibuprofen 800 MG TABLET PO (17:19)
[2021-04-07 17:24] LABS: D Dimer High Sensitivity < 150 NG/ML
[2021-04-07 17:31] LABS: Alanine Aminotransferase 22 U/L (0-40); Albumin Level 4.4 g/dL (3.5-5.0); Alkaline Phosphatase 101 U/L (39-117); Anion Gap 13 (12-20); Aspartate Amino Transferase 18 U/L (5-37); Bilirubin Total 1.4 mg/dL (0.0-1.0); Blood Urea Nitrogen 19 mg/dL (9-16); Calcium 8.9 mg/dL (8.4-10.2); Carbon Dioxide 27 mmol/L (22-29); Chloride 104 mmol/L (96-108); Estimated Glomerular Filt Rate > 60; Glucose Random 86 mg/dL (60-115); Potassium 3.9 mmol/L (3.3-5.1); Sodium 140 mmol/L (135-145); Total Protein 6.9 g/dL (6.5-8.0)
[2021-04-07 17:36] LABS: Troponin-I High Sensitivity < 3.5 ng/L (<3.5-35.0)
[2021-04-07] MEDS: Nicotine 14 MG PATCH.TD24 TRANSDERMA (18:19)
[2021-04-07] MEDS: clonazePAM 1 MG TABLET PO (18:30)
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
[2021-04-07 19:39] LABS: Amphetamine Screen Urine Not Detected (Not Detect); Barbiturates, Urine Not Detected (Not Detect); Benzodiazepines Screen Urine Not Detected (Not Detect); Cannabinoid Screen Urine Not Detected (Not Detect); Cocaine Screen Urine Not Detected (Not Detect); Fentanyl, urine Not Detected (Not Detect); Opiate Screen Urine Not Detected (Not Detect); Phencyclidine Screen Urine Not Detected (Not Detect)
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
[2021-04-07 20:48] LABS: Magnesium 1.8 mg/dL (1.6-2.6)
[2021-04-08 01:14] LABS: COVID-19 Test Negative (Negative); IDNOW Serial# 9DD0AD1C
[2021-04-08 03:03] VITALS: BP 124/73; PULSE 88; RESP 18; O2SAT 100
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
[2021-04-08] MEDS: Acetaminophen 325 MG TABLET 650 MG PO ×2 (05:30→11:08)
--- NOTE | 2021-04-08 05:53 | PC.NURSE ---
pt awake and c/o pain all over . pt medicated with Tylenol PO as per emar. pt requesting warm blk. will continue to monitor pt.
[2021-04-08 06:38] LABS: MANUAL DIFF FLAG NO
[2021-04-08 06:44] LABS: Basophils Absolute Auto 0.1 X10*3/uL (0.0-0.2); Basophils Percent Auto 0.9 % (0-2); Eosinophils Absolute Auto 0.2 X10*3/uL (0.0-0.4); Eosinophils Percent Auto 2.7 % (0-4); Hematocrit 41.4 % (42.0-52.0); Imm Gran Abs Auto 0.01 X10*3/uL (0.00-0.03); Imm Gran Pct Auto 0.2 % (0.0-0.4); Lymphocytes Absolute Auto 1.9 X10*3/uL (1.2-4.9); Lymphocytes Percent Auto 34.5 % (20-40); Mean Corpuscular HGB Conc 36.2 g/dl (31.0-36.0); Mean Corpuscular Hemoglobin 31.6 pg (27.0-33.0); Mean Corpuscular Volume 87.3 fL (80.0-98.0); Mean Platelet Volume 9.7 fL (9.4-12.4); Monocytes Absolute Auto 0.4 X10*3/uL (0.1-1.2); Monocytes Percent Auto 6.2 % (2-11); Neutrophils Absolute Auto 3.1 x10*3/uL (2.0-8.3); Neutrophils Percent Auto 55.5 % (45-73); Platelet Count 295 X10*3/uL (160-400); Red Blood Count 4.74 X10*6/uL (4.60-5.80); Red Cell Distribution Width 11.7 % (11.0-16.0); White Blood Count 5.6 X10*3/uL (4.8-10.8)
[2021-04-08 07:01] LABS: Anion Gap 11 (12-20); Blood Urea Nitrogen 18 mg/dL (9-16); Calcium 9.4 mg/dL (8.4-10.2); Carbon Dioxide 26 mmol/L (22-29); Chloride 107 mmol/L (96-108); Creatinine Clr Calc Pharmacy 117.2; Estimated Glomerular Filt Rate > 60; Glucose Random 103 mg/dL (60-115); Potassium 4.2 mmol/L (3.3-5.1); Sodium 140 mmol/L (135-145)
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
[2021-04-08] MEDS: 0.9 % Sodium Chloride Flush 3 ML SYRINGE IVFLUSH (08:09)
[2021-04-08] MEDS: Ibuprofen 400 MG TABLET PO (08:09)
[2021-04-08] MEDS: Nicotine 21 MG PATCH.TD24 TRANSDERMA (08:11)
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
[2021-04-08] MEDS: ondansetron HCL 4 MG/2 ML VIAL IVPUSH (11:10)
[2021-04-08 12:00] VITALS: BP 118/63; PULSE 91; RESP 18; TEMP 36.6; O2SAT 99
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
[2021-04-08] MEDS: 0.9 % Sodium Chloride 1,000 ML 999 ML IVCONT (14:20)
[2021-04-08] MEDS: traMADoL HCL 50 MG TABLET 25 MG PO (14:31)
[2021-04-08 15:14] VITALS: BP 134/65; PULSE 88; RESP 20; TEMP 37; O2SAT 97
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
== END 2021-04-08 17:31 | disposition home or self-care (01) ==
LOC: HO.ED 19:28 → HO.EDOVER 19:34 → HO.IMC 04-08 11:58
PROVIDERS: Admitting Provider Internal Medicine; Emergency Provider Emergency Medicine; PCP Nurse Practitioner Family; Visit Provider Internal Medicine
DX: R55 Syncope and collapse (principal); I45.81 Long QT syndrome; R07.89 Other chest pain; R07.81 Pleurodynia; E86.0 Dehydration; F06.8 Other specified mental disorders due to known physiological condition; V89.0XXA Person injured in unspecified motor-vehicle accident, nontraffic, initial encounter; Y93.9 Activity, unspecified; Y92.414 Local residential or business street as the place of occurrence of the external cause; Y99.8 Other external cause status; F41.9 Anxiety disorder, unspecified; F17.200 Nicotine dependence, unspecified, uncomplicated; Z20.822 Contact with and (suspected) exposure to COVID-19; Z88.1 Allergy status to other antibiotic agents; Z88.0 Allergy status to penicillin; Z79.899 Other long term (current) drug therapy
CPT/HCPCS: 36415; 70450; 71046; 72125; 80048; 80053; 80307; 83735; 84484; 85025; 85379; 87635; 90686; 93005; 99219; 99285; J2405

== ENCOUNTER → 2021-04-20 07:57 | Outpatient (REF) | payer OTHER, SELFPAY ==
--- NOTE | 2021-04-20 08:00 | CA_ITS ---
Acquisition Time: 2021-04-20 08:01:27 Total Exercise Time: 00:12:00 Test Indications: Abnormal ECG Medications: NONE Protocol: BETSEY Max HR: 179 BPM 90% of Pred: 198 BPM Max BP: 144/070 mmHG Max Work Load: 13.7 METS Exercise stress test with exercise 12 min of Betsey protocol, without anginal symptoms or lightheadedness, without arrythmia, with normotensive response to exercise, without EKG changes meeting criteria for ischemia. At 4 min recovery there is downsloping STs lead III, aVF, V5-V6, asymptomatic, in setting of downsloping ST lead III at baseline. EKG tracings reviewed with Dr Kline, Nonspecific EKG changes in late recovery. Normal stress test. Referred By: Tay Kline Overread By: ANNA BRODERICK
== END ==
LOC: HO.CARD 07:57
PROVIDERS: Visit Provider Internal Medicine Cardiovascular Disease
DX: R07.9 Chest pain, unspecified (principal)
CPT/HCPCS: 93017

== ENCOUNTER → 2021-05-03 07:28 | Outpatient (REF) | payer OTHER, SELFPAY ==
--- NOTE | 2021-05-03 07:32 | CA_ITS ---
Transthoracic Echocardiogram Patient (Last, First, Middle): Oleksandr Henry, Gender: Male Date of : 2000 Age: 20 Procedure Date: 05/03/2021 Procedure Type: Transthoracic Echocardiogram Location: OP Height: 175.26 cm Weight: 81.19 kg BSA: 1.97 m2 Heart Rate: bpm BP: 122 / 80 mmHg [employer] Principal: NAVNEET Graves MD: Tay Kline MD Symptoms: R55 - Syncope and collapse Study Quality: Good Conclusions: - Normal study. Findings Left Ventricle Normal left ventricular size, thickness, systolic function, and wall motion. The visually estimated ejection fraction is between 55-60%. Abnormal diastolic function is noted. Right Ventricle Normal right ventricular cavity size and systolic function. Atria Both atria are normal in size. Aortic Valve Normal aortic valve structure and function. There is no aortic valve stenosis. There is no aortic valve regurgitation. Mitral Valve Normal mitral valve structure and function. There is no mitral valve regurgitation. There is no mitral valve stenosis. Pulmonic Valve Normal pulmonic valve structure and function. There is trace pulmonic valve regurgitation. Tricuspid Valve Normal tricuspid valve structure and function. There is trace tricuspid valve regurgitation. Normal right atrial pressure. There is no evidence of pulmonary hypertension. Great Vessels All visible segments of the aorta are normal in size. The visualized portions of the pulmonary artery and branches are normal. Venous The inferior vena cava is normal in size and collapses greater than 50% with inspiration. There is normal flow in the left upper pulmonary vein. Pericardium/Pleural There is no evidence of pericardial effusion. Prior Study Comparison No prior study available for comparison. Measurements 2D Linear Measurements IVSd: 0.80 0.6-0.9/0.6-1.0 cm LVIDd: 5.31 3.9-5.3/4.2-5.9 cm LVIDd Index: 2.70 2.4-3.2/2.2-3.1 cm/m2 LVIDs: 3.23 2.0-3.6 cm LVPWd: 0.92 0.7-1.1 cm Ao Root: 3.30 2.1-3.5 cm LA Diam: 3.40 2.7-3.8/3.0-4.0 cm LAIDs Index: 1.73 1.5-2.3 cm/m2 LV Mass: 206.23 67-162/88-224 g LV Mass Index: 104.69 43-95/49-115 g/m2 LVOT Diam: 2.20 3.0+(-)1.3 cm 2D Systolic Function EF 4C: 53.90 >55% EF 2C: 61.00 >55% EF BiP: 58.00 >55% Mitral Valve MV Pk E: 0.96 MV PK A: 0.53 MV Decel Time: 174.00 E/A: 1.80 E'Lateral: 17.80 E'Medial: 12.30 E/E' Med: 7.80 E/E' Lat: 5.40 PHT: 51.00 MVA PHT: 4.31 Decel [place]: 5.48 Aortic Valve AoV Pk Osmin: 0.90 AoV Mn Osmin: 0.67 AoV VTI: 0.19 AoV Pk Grad: 3.00 Aov Mn Grad: 2.00 OLIVIA Cont.VTI: 3.70 LVOT LVOT Pk Osmin: 0.89 LVOT Mn Osmin: 0.64 LVOT VTI: 0.19 LVOT Pk Grad: 3.00 LVOT Mn Grad: 2.00 LVOT Diam: 2.20 LVOT Area: 3.80 Diastolic Function MV Pk E: 0.96 MV Pk A: 0.53 E/A: 1.80 E'Medial: 12.30 E/E' Med: 7.80 E' Laterial: 17.80 E/E' Lat: 5.40 Right Ventricle TAPSE (mm): 1.83 TVS' Osmin: 10.20 Tricuspid Valve TR Pk Osmin: 2.06 TR Pk Grad: 17.00 RA Press: 3.00 RVSP: 20.00 Great Vessels Aorta Ao Root-2D: 3.30 2.0-3.7 cm Ao Asc: 2.90 2.1-3.4 cm Ao Arch: 2.00 Updated in Other Vendor System with Status of Final Tay Kline MD electronically signed on 05/03/2021 2:18:07 PM with status of Final
== END ==
LOC: HO.CARD 07:28
PROVIDERS: PCP Nurse Practitioner Family; Visit Provider Internal Medicine Cardiovascular Disease
DX: R55 Syncope and collapse (principal)
CPT/HCPCS: 93306

== ENCOUNTER → 2021-05-17 15:23 | Outpatient (BNVA) | payer OTHER, SELFPAY | PROVIDERS: PCP Nurse Practitioner Family; Referring Provider Nurse Practitioner Family; Visit Provider Internal Medicine Cardiovascular Disease ==

== ENCOUNTER 2021-09-19 12:20 | Outpatient (REF) | payer OTHER, SELFPAY ==
--- NOTE | 2021-09-19 12:25 | EEG_ITS ---
This is a 16-channel EEG with an EKG lead. The patient is reported awake during the tracing. Background EEG rhythm is 10 hertz 5 to 20 microvolt posteriorly, lower amplitude fast anteriorly. Photic stimulation does not produce any significant driving. Hyperventilation is not performed. No sharp wave spikes or paroxysmal tendency noted. Cardiac lead does not reveal any significant abnormality. IMPRESSION: Unremarkable EEG. MD ELIZABETH Bella/MORIS / [id number]
== END 2021-09-19 12:21 | disposition home or self-care (01) ==
LOC: HO.NEURO 12:20
PROVIDERS: PCP Nurse Practitioner Family; Visit Provider Nurse Practitioner Family
DX: R40.20 Unspecified coma (principal)
CPT/HCPCS: 95816

== ENCOUNTER 2023-03-20 10:26 | Outpatient (AMB) | payer OTHER, SELFPAY ==
--- NOTE | 2023-03-20 10:30 | MHC.PC.OV ---
Vital Signs 03/20/23 10:33 Height 5 ft 9 in Weight 162 lb BMI 23.9 BP 116/64 Blood Pressure Location Rt brachial Position Sitting Pulse 70 Pulse Source Pulse Oximeter Pulse Oximetry (%) 98 Oxygen Delivery Method Room Air Intake Visit Reasons: Annual PE Allergies amoxicillin [AMOXICILLIN] Allergy (Unknown, Verified 03/20/23 10:33) hives Medication List - Last Reconciled 03/20/23 by STEPHAN Rivera trazodone 50 mg PO BEDTIME PRN 90 days Tobacco use date assessed: 03/20/23 Dental Screening Dental Screen Date: 03/20/23 Did you have a dental visit in the last 12 months?: Yes Did you have a dental problem in the last 6 months where you did not have access to dental care?: No Was dental information given to patient?: Patient has dentist HPI Annual PE HPI Details pt is here for PE. PFSH Medical History Anxiety Surgical History H/O colonoscopy No pertinent past surgical history Family History Father No problems noted. Mother No problems noted. Sister No problems noted. Social History Household Members: Family Housing: House Do you presently have visiting nurse or other home services: No Patient Tobacco Use Status: Never used Tobacco e-Cigarette/Vaping Use: Currently Using service: No Current occupational status: employed Cognitive needs: No Hearing needs: No Vision needs: No Questionnaire Thrive Questionnaire Date Thrive assessed: 04/19/21 AUDIT C Alcohol Use Questionnaire (AUDIT-C) 1. How often do you have a drink containing alcohol?: Monthly or less 2. How many drinks containing alcohol do you have on a typical day when you are drinking?: 1 or 2 3. How often do you have six or more drinks on one occasion?: Never Total Score: 1 Score Reviewed/Action Taken: No TRINI-7 AMB Questionnaire TRINI-7 Date TRINI - 7 assessed: 04/19/21 Source: Developed by Vale Peters B.W. Trevon, Toño Cortés and colleagues, with an educational kandy from [employer]. Review of Systems Const Denies chills and Denies fever(s) Eyes Denies blurry vision ENT Denies vertigo, Denies dizziness and Denies sore throat Card Denies chest pain at rest, Denies chest pain with activity, Denies diaphoresis, Denies dyspnea and Denies dyspnea on exertion Resp Denies cough, Denies dyspnea, Denies dyspnea on exertion and Denies wheezing GI Denies abdominal pain, Denies melena, Denies hematochezia, Denies constipation, Denies diarrhea and Denies loose stools Denies hematuria Musc Denies numbness and Denies tingling Skin/Breast Denies lesions Neuro Denies vertigo, Denies dizziness, Denies numbness and Denies tingling Psych Denies anxiety, Denies depression, Denies homicidal ideation, Denies suicidal ideation and Denies other (substance abuse) Aller/Immun Denies wheezing Physical exam (Primary Care) Vital Signs: Last Vital Signs Pulse 70 03/20/23 10:33 BP 116/64 03/20/23 10:33 Pulse Ox 98 03/20/23 10:33 Oxygen Delivery Method Room Air 03/20/23 10:33 BMI result Body Mass Index 23.9 Tobacco/Smoking Status: Tobacco use Status Tobacco use date assessed 03/20/23 03/20/23 10:36 Patient Tobacco Use Status Never used Tobacco 03/20/23 10:31 e-Cigarette/Vaping Use Currently Using 03/20/23 10:31 Thrive Assessment: Date of Thrive Assessment Date Thrive assessed 04/19/21 03/20/23 10:31 Const General: cooperative Nutritional Appearance: well nourished Orientation/consciousness: patient oriented x3 HENMT Head: Yes normal to inspection, Yes normocephalic and Yes atraumatic Ears: TM normal on the right and TM normal on the left Eyes General: appearance normal, both eyes and all related structures Alignment and Position: alignment normal and position normal Neck Neck: Yes normal visual inspection and Yes no lymphadenopathy Resp Effort & Inspection: normal respiratory effort Auscultation: clear to auscultation bilaterally Cardio Rate: regular rate Rhythm: regular rhythm Heart sounds: S1 normal heart sound present, S2 normal heart sound present and no murmurs GI Palpation (GI): Soft to palpation and nontender Auscultation: normal bowel sounds Male General Exam: Yes normal external exam Penis: normal penis Scrotum: scrotum normal, testes descended bilaterally and no inguinal hernias Testes: no testicular mass Skin Rashes: no rashes Neuro General: patient oriented x3, moves all extremities, no focal motor deficits and deep tendon reflexes 2+ bilaterally Romberg Test: Negative Extrem Right lower extremity: no edema Left lower extremity: no edema Psych Affect: normal affect Attitude: cooperative Thought process: Normal thought process present Assessment and Plan Assessment & Plan (1) Physical exam: Code(s): Z. - Encounter for general adult medical examination without abnormal findings Orders: Orders TSH reflex Free T4 Today Z00. - Encounter for general adult medical examination without abnormal findings Lipid Panel Today Z00.00 - Encounter for general adult medical examination without abnormal findings Complete Blood Count Auto Diff Today Z00.00 - Encounter for general adult medical examination without abnormal findings Comprehensive [place]. Panel Fast Today Z00.00 - Encounter for general adult medical examination without abnormal findings UA CC w/rflx Micro + Cult Today Z00.00 - Encounter for general adult medical examination without abnormal findings Coding Level of Care Code Est Pt Prev Care [id number]) Diagnoses Physical exam Z00.00
[2023-03-20 10:33] VITALS: BP 116/64; PULSE 70; O2SAT 98; BMI 23.9
== END 2023-03-20 11:05 | disposition home or self-care (01) ==
PROVIDERS: PCP Nurse Practitioner Family; Visit Provider Nurse Practitioner Family
DX: Z00.00 Encounter for general adult medical examination without abnormal findings (principal)
CPT/HCPCS: 99395